=== PATIENT | male | born 1955 | race Caucasian/White ===

== ENCOUNTER 2024-05-17 18:33 | Inpatient (IN) | payer MEDICARE, OTHER, SELFPAY ==
[2024-05-17 14:31] VITALS: BP 133/113
[2024-05-17 14:36] VITALS: BMI 24.2
[2024-05-17 15:00] VITALS: BP 157/131
[2024-05-17 15:01] LABS: % Basophils 0.5 % (0-2); % Immature Granulocytes 1.1 % (0-0.5); % Lymphocytes 5.2 % (20.5-51.1); % Monocytes 10.5 % (1.7-9.3); % Neutrophils 82.7 % (42.2-75.2); Absolute Basophils 0.1 10^3/uL (0-0.2); Absolute Immature Granulocytes 0.1 10^3/uL (0-0.05); Absolute Lymphocytes 0.7 10^3/uL (1.2-3.4); Absolute Monocytes 1.3 10^3/uL (0.1-0.6); Absolute Neutrophils 10.3 10^3/uL (1.4-6.5); Hematocrit 41.2 % (39.0-52.0); Hemoglobin 14.3 g/dL (13.0-18.0); Mean Corp Hgb Conc. 34.7 g/dL (33.0-37.0); Mean Corpuscular Hgb 34.6 pg (27.0-31.0); Mean Corpuscular Volume 99.8 fL (80.0-94.0); Mean Platelet Volume 9.3 fL (7.4-10.4); Nucleated Red Blood Cells % 0 % (-); Platelet Count 193 10^3/uL (130-400); Red Blood Cell Count 4.13 10^6/uL (4.70-6.10); Red Cell Dist. Width 11.4 % (11.5-14.5); White Blood Cell Count 12.4 10^3/uL (4.8-10.8)
--- NOTE | 2024-05-17 15:05 | ED.GENMED ---
History of Present Illness
General
Chief Complaint: Weakness
Source: patient, spouse and family (Son)
Time Seen by Provider: 05/17/24 14:52
History of Present Illness
History of Present Illness:
68-year-old male history of frequent falls secondary to his Parkinson's. Fell last night. Syncope. Unsure if he hit his head. Was able to get up with his assistance. However multiple falls this morning with weakness. Inability to use the
right leg. Complaining of severe low back pain
Past History
Past History
ED Past Medical History: Other (Cerebellar ataxia) and Other (Irritable bowel syndrome)
ED Past Surgical History: Orthopedic (Left elbow, left ankle)
Social History
Personal:
Living: with family
Phy Exam
Physical Exam
Physical Exam:
TRAUMA EXAM:
VITAL SIGNS: Vital signs reviewed, cooperative
DISTRESS: No active disease
EYES: Pupils reactive, no orbital trauma
NOSE: No deformity or epistaxis
FACE AND SCALP: Abrasion to the right forehead no blood
NECK: Collar in place
BACK: Severe low back pain with rotation. However no point tenderness abrasion or ecchymosis
RESPIRATORY: No distress, breath sounds normal, no tender chest wall
CARDIAC: No murmur, pulses equal and strong
ABDOMEN: Soft nontender bowel sounds normal
SKIN: Superficial abrasion of the lower abdominal wall
EXTREMITIES: No pain with hip rotation. Pelvis stable. All extremities unremarkable. However significant low back pain with attempted straight leg raising of the right leg.
NEUROLOGICAL: Alert, oriented, no motor deficits. Weakness of the right leg but appears more secondary to low back pain when he tries to straight leg raise. Plantar dorsiflexion of the foot are intact. Resting tremor left arm. Masked facies.
All consistent with Parkinson's
PSYCH: Mood affect normal
Course
Orders/Labs/Results
Orders:
Orders
05/17/24 14:34
EKG [Electrocardiogram (*1)] Urgent
Reason for Study: Fatigue / Weakness
EKG- Treatment ONCE
05/17/24 14:43
COVID-19 Antigen Urgent
Source: Nasal Swab
Complete Blood Count/With Diff Urgent
Comprehensive Metabolic Panel Urgent
Influenza A+B Rapid Molecular Urgent
MANJIT Source: Nasal Swab
Specimen Description:
05/17/24 Dinner
Regular
05/17/24 15:03
CT Cervical Spine W/o Iv Contr Urgent
Comment:
Reason For Exam: trauma
CT Head W/o Iv Contrast Urgent
Comment:
Reason For Exam: trauma
Cardiac Monitoring- Treatment ONCE
05/17/24 15:05
0.9% Sodium Chloride 500 ml [Nss] 500 ml IV BOLUS
05/17/24 15:07
CT Abd/pel W Iv Cont (trauma) Urgent
Comment:
Reason For Exam: Severe low back pain. Status post trauma
Cardiac Monitoring- Treatment ONCE
05/17/24 17:07
Urinalysis Reflex To Culture Urgent
Date Specimen was Collected: 05/17/24
Time Specimen was Collected: 17:06
Urine Microscopic Reflex Cult Urgent
Urine Culture Urgent
MANJIT Source: U
Specimen Description:
Date Specimen was Collected: 05/17/24
Time Specimen was Collected: 17:06
05/17/24 17:21
CXR Port [CR Chest Portable - 1 View] Urgent
Comment:
Reason For Exam: trauma
Reason Study Needs to be Portable: Unable to Transport
05/17/24 17:47
CefTRIAXone [Rocephin] 1,000 mg IV NOW STA
05/17/24 18:00
Ketorolac [Toradol] 15 mg IV NOW STA
05/17/24 18:03
Admit/Transfer Patient As Directed
Co-Sign Provider:
Level of Care: Inpatient admission
Assign to:: Telemetry
Physician / Group: Dr Grimes
Diagnosis: UTI
Reason for Telemetry: Arrhythmia
Date to Stop Telemetry: 05/20/24
Time to Stop Telemetry: 11:00
Reason for Hospitalization: pte p/w fall and sepsis due to uti.
Expected length of stay greater than two midnights?: Yes
ELOS- Estimated Length of Stay in days: 2
I certify the patient meets the requirements for IP care: Yes
PRN Pain Medication Management As Directed
May give lesser potent ordered pain med per pt: Yes
preference::
Protocol:: Medication orders for pain may be administered in a
manner that supports deferring to patient preference
when the pt is:
- Requesting an ordered lesser potent pain medication.
Least to most potent pain medications are defined
as: acetaminophen < NSAID < tramadol < opioids
(morphine, oxycodone, hydromorphone).
- Requesting a lesser dose of the same medication IF
ORDERED.
- Requesting a less intrusive route of administration
if both routes are prescribed by the provider (PO <
IV).
05/17/24 18:04
Code Status As Directed
Resuscitation Status: Full Code
05/17/24 18:06
Pt Eval And Treat Routine
Activity Level: Out of Bed-Early Mobility
05/17/24 18:07
Ot Eval And Treat Routine
05/17/24 18:22
Code Status As Directed
Resuscitation Status: Do not resuscitate
Reached after discussion with pt or family/Healthcare POA: Yes
DNR Bracelet Application ONCE
05/17/24 18:23
Orthostatic Vital Signs As Directed
Orthostatic VS Frequency: Daily
05/17/24 18:25
Carbidopa/Levodopa [Sinemet 25-100] 1 tablet PO TID
Primidone [Mysoline] 50 mg PO DAILY
Tamsulosin [Flomax] 0.4 mg PO DAILY
05/17/24 18:26
HYDROmorphone [Dilaudid] 0.25 mg IV Q4HPRN PRN
05/17/24 18:45
Blood Culture Q30M
MANJIT Source: Blood/Venous
Specimen Description:
05/17/24 19:00
Lactated Ringers [Lr] 1,000 ml IV 85 mls/hr
05/17/24 19:38
Acetaminophen [Tylenol] 650 mg PO Q4HPRN PRN
Bisacodyl [Dulcolax] 10 mg RECTAL T26IYLE PRN
Docusate W/Senna [Senokot-S] 1 tablet PO BIDPRN PRN
Polyethylene Glycol Powder [Miralax] 17 grams PO DAILYPRN PRN
05/17/24 19:38
Activity As Directed
Activity Level: Out of Bed-Early Mobility
Vital Signs As Directed
Frequency: Per unit guidelines
DX Deep Vein Thrombosis Video Routine
05/17/24 20:00
Duloxetine Delayed Release [Cymbalta Delayed Release] 30 mg PO BID
Levetiracetam [Keppra] 500 mg PO BID
Pregabalin [Lyrica] 75 mg PO BID
05/17/24 20:30
Lactic Acid Stat
Blood Culture Q30M
MANJIT Source: Blood/Venous
Specimen Description:
05/18/24 00:00
Ketorolac [Toradol] 10 mg IV Q6HPRN PRN
05/18/24 06:00
Complete Blood Count/With Diff IN AM
Comprehensive Metabolic Panel IN AM
05/18/24 18:00
CefTRIAXone [Rocephin] 1,000 mg IV Q24H
Enoxaparin Sodium [Lovenox] 40 mg SC QPM
05/20/24 11:00
DC Protocol for Telemetry ONCE
Abnormal Lab Results
05/17/24 05/17/24
14:43 17:07
WBC 12.4 H 10^3/uL
(4.8-10.8)
RBC 4.13 L 10^6/uL
(4.70-6.10)
MCV 99.8 H fL
(80.0-94.0)
MCH 34.6 H pg
(27.0-31.0)
RDW 11.4 L %
(11.5-14.5)
Abs Immat Gran (auto) 0.1 H 10^3/uL
(0-0.05)
Absolute Neuts (auto) 10.3 H 10^3/uL
(1.4-6.5)
Absolute Lymphs (auto) 0.7 L 10^3/uL
(1.2-3.4)
Absolute Monos (auto) 1.3 H 10^3/uL
(0.1-0.6)
Immature Gran % 1.1 H %
(0-0.5)
Neutrophils % 82.7 H %
(42.2-75.2)
Lymphocytes % 5.2 L %
(20.5-51.1)
Monocytes % 10.5 H %
(1.7-9.3)
Sodium 131 L mmol/L
(135-145)
Chloride 92 L mmol/L
(98-107)
Carbon Dioxide 20 L mmol/L
(22-30)
Glucose 118 H mg/dl
(70-99)
Total Bilirubin 2.3 H mg/dl
(0.2-1.3)
Alkaline Phosphatase 135 H U/L
(38-126)
Urine Ketones 1+ A
(Negative)
Ur Occult Blood Reflex 3+ A
(Negative)
Leukocyte Esterase Rfl 2+ A
(Negative)
Urine RBC 3-6 A /HPF
(0-2)
Urine WBC (Reflex) 50-60 A /HPF
(0-5)
Urine Bacteria (Reflex) Few A
(Negative)
Urine Albumin (Reflex) 1+ A
(Neg - Trace)
05/17/24 14:43
05/17/24 14:43
Vital Signs
Initial and Last Documented VS:
Initial Vital Signs
Temp Pulse Resp BP Pulse Ox
98.0 F 110 20 133/113 100
05/17/24 14:31 05/17/24 14:31 05/17/24 14:31 05/17/24 14:31 05/17/24 14:31
Last Documented Vital Signs
Temp Pulse Resp BP Pulse Ox
97.9 F 94 20 142/76 99
05/17/24 19:43 05/17/24 19:43 05/17/24 19:43 05/17/24 19:43 05/17/24 19:43
MDM/Problems Addressed
Differential Diagnosis Includes:
Multiple issues with this patient. Neurologically I have a low suspicion for stroke. He does have weakness in the right leg but it appears more secondary to pain. We will get a CT of the head. Also CT of the head will be obtained because of
trauma CT cervical spine. Mostly his complaint is severe low back pain. We will CT his abdomen and pelvis he does have an abrasion of the abdomen. This should include the lumbar spine. In addition the states he has urinary symptoms. UA
will be obtained. Patient clearly needs admission. Workup in progress
*Critical Care Note
Total Time (30-74mins, 75-104mins- exclusive of procedures): Not Applicable
Data Reviewed
Review of Other/Old Records Reveals: Labs and Records
ED Attending Note
-
Portions of this chart may have been created with voice recognition software.� Occasional wrong word or��sound alike� substitutions may have occurred due to the inherent limitations of voice recognition software.
Discharge Plan
Departure
Patient Disposition: Admit
Date of Disposition: 05/17/24
Time of Disposition: 17:48
Presentation/result/management discussed w/ accepting MD/DO: Hospitalist
Discharge Problem:
Fall, Lumbar compression fracture/transverse p, Right rib fracture, UTI
Interventions
Interventions:
*Risk Screen - Suicide Last Done: 05/17/24 14:29
*General Assessment Last Done: 05/17/24 14:29
*Neglect/Abuse Screening Last Done: 05/17/24 14:29
ED- Fall Risk Assessment Last Done: 05/17/24 14:30
*ED COVID-19 Vaccine History Last Done: 05/17/24 14:35
*Nursing Disposition Last Done: 05/17/24 19:25
ED- Cardiac Assessment Last Done: 05/17/24 14:39
ED- Neurological Assessment Last Done: 05/17/24 14:39
ED- Pulmonary Assessment Last Done: 05/17/24 14:39
Discharge Date and Time
Discharge Date/Time: 05/17/24 19:25
[2024-05-17 15:12] LABS: COVID-19 Antigen Negative (Negative)
[2024-05-17] MEDS: NSS 500 IV (15:13)
[2024-05-17 15:18] LABS: ALT (SGPT) 41 U/L (0-50); AST (SGOT) 51 U/L (17-59); Albumin 4.6 g/dl (3.5-5.0); Alkaline Phosphatase 135 U/L (38-126); Blood Urea Nitrogen 15 mg/dl (9-20); Calcium 9.6 mg/dl (8.4-10.2); Carbon Dioxide 20 mmol/L (22-30); Chloride 92 mmol/L (98-107); Estimated Creatinine Clearance 75 ml/min; Glucose 118 mg/dl (70-99); Potassium 4.9 mmol/L (3.5-5.1); Sodium 131 mmol/L (135-145); Total Bilirubin 2.3 mg/dl (0.2-1.3); Total Protein 7.6 g/dl (6.3-8.2); eGFR > 60.00
[2024-05-17 16:50] VITALS: BP 144/102
[2024-05-17 17:00] VITALS: BP 168/89
[2024-05-17 17:42] LABS: Urine Albumin 1+ (Neg - Trace); Urine Bilirubin Negative (Negative); Urine Character Very Cloudy (Clear); Urine Color Yellow; Urine Glucose Negative (Negative); Urine Ketone 1+ (Negative); Urine Leukocyte 2+ (Negative); Urine Nitrite Negative (Negative); Urine Occult Blood 3+ (Negative); Urine Specific Gravity 1.015 (<1.030); Urine Urobilinogen Negative (Neg - 1+)
[2024-05-17 17:51] LABS: Urine Bacteria Few (Negative); Urine Squamous Cell 0-2 /LPF (Few)
[2024-05-17 17:52] LABS: Urine White Cell 50-60 /HPF (0-5)
[2024-05-17] MEDS: ROCEPHIN 1000 MG IV (17:53)
--- NOTE | 2024-05-17 17:55 | HPS.HSE ---
Family Physician
-
Family Physician: Jb Joel
Chief Complaint
-
Fall
History of Present Illness
Patient 68 years old male with history of Parkinson's disease, peripheral neuropathy, BPH, seizure disorder, dyslipidemia, orthostatic hypotension, came into the hospital after a fall. Patient fell last evening when he was walking to the bath and
tripped and fell. He did hit his head. He denies loss of consciousness. He denies tonic-clonic activity or tongue biting or bowel bladder incontinence. He has multiple falls over the last few weeks. He also endorses having dysuria and urgency
and frequency over the last several days has been progressively getting worse. He also complains of back pain after the fall. He also has generalized weakness and worsening tremors but he has not taking any of his medications today. He denies
fevers or chills. Denies chest pain or shortness of breath. He did have some mild URI symptoms and rhinorrhea but no worsening cough or shortness of breath. He tells me she sees a neurologist at [facility] and last time he saw him was about 3
months ago and tells me the neurologist has noticed progression of his underlying Parkinson's and he has an upcoming appointment for June. In the ER he was found to have leukocytosis and he was given broad-spectrum antibiotics. He was
referred to hospitalist for further evaluation
Medical History
Past Medical History
Past Medical History: Reports Other (Parkinson's disease, peripheral neuropathy, BPH, seizure disorder, irritable bowel syndrome, dyslipidemia, hereditary cerebellar ataxia, orthostatic hypotension.)
Past Surgical History: Reports Other (Left elbow and left ankle surgery)
Social History
Tobacco: Non-smoker
Alcohol: None
Drug: None
Family History
Family History: Not pertinent
Allergies / Home Medications
Allergies reflects when Allergies were last updated in [facility].
Home Medications with original date entered in [facility]
Allergy/Medication List:
Allergies
Allergy/AdvReac Type Severity Reaction Status Date / Time
bacitracin Allergy Pharmacy Verified 05/17/24 14:34
to Review
gramicidin D Allergy Pharmacy Verified 05/17/24 14:34
to Review
neomycin Allergy Pharmacy Verified 05/17/24 14:34
to Review
polymyxin B Allergy Pharmacy Verified 05/17/24 14:34
to Review
Home Medications
fenofibric acid (choline) 135 mg capsule,delayed release (Trilipix) 135 mg PO DAILY 12/02/09
multivitamin with folic acid 400 mcg tablet (Tab-A-Kody) 1 tab PO DAILY 12/02/09
nitroglycerin 0.4 mg sublingual tablet 0.4 mg sublingual [id number] PRN CHEST PAIN 12/02/09
aspirin,buffered (calcium carbonate-magnesium) 325 mg tablet 325 mg PO DAILY 12/05/09
Review of Systems
-
A 12 point ROS was completed and negative except as noted: Yes
Physical Exam
Vital Signs
Vital Signs
Temp Pulse Resp BP Pulse Ox
98.0 F 104 14 157/131 93
05/17/24 14:31 05/17/24 15:30 05/17/24 15:30 05/17/24 15:00 05/17/24 15:30
Physical exam:
General: Acutely ill
HEENT: Normocephalic, Atraumatic and dry Mucous Membranes
Respiratory: Clear to Auscultation; Negative Wheezes, Rales or Rhonchi
Cardiac: Regular Rhythm and S1/S2
GI: Soft, Nontender and Nondistended
Musculoskeletal: Pain in the lumbar area. Decreased range of motion in the back. No Clubbing, No Cyanosis and No Edema
Neuro: Awake, Alert and Oriented, no gross neurological deficit but generalized weakness present especially both lower extremities slightly worse on the right associated with pain; he also has increased tone/rigidity and bradykinesia, tremors
present, and also masked facies.
Psych: Calm
Physical Exam
General: Other
Laboratory Results
-
05/17/24 14:43
05/17/24 14:43
Laboratory Results
Total Bilirubin 2.3 mg/dl (0.2-1.3) H 05/17/24 14:43
AST 51 U/L (17-59) 05/17/24 14:43
ALT 41 U/L (0-50) 05/17/24 14:43
Alkaline Phosphatase 135 U/L (38-126) H 05/17/24 14:43
Data Reviewed
-
CT Scan: Image Personally Visualized and interpreted
Lab Data: Labs Reviewed by me
Impression/Plan
-
IMPRESSION:
Patient 68 years old male history of Parkinson's came into the hospital with fall and found to have urinary tract infection. Patient increased risk of morbidity and mortality due to acute presentation and comorbidities therefore he will need to be
treated in the hospital and monitor accordingly.
PLAN:
Mechanical fall:
Multifactorial related to UTI, Parkinson's, peripheral neuropathy, and other
PT OT eval
CT of the head no acute intracranial abnormality but chronic changes noted
CT of the neck with several abnormalities but doubt needs for any surgical evaluation but can reevaluate
Gentle hydration and antibiotics since infection and dehydration contributing
Back to his Parkinson medications
trade manager for discharge disposition
Sepsis due to UTI:
Evidence of leukocytosis, tachycardia, tachypnea, and source likely UTI
Abnormal UA consistent with UTI
White blood cell count 12.[address] scan of the abdomen with evidence of severe cystitis
Started on IV Rocephin and continue same antibiotics and follow-up cultures
Follow-up urine culture
Obtain blood cultures and lactic acid
Chest x-ray pending to exclude pulmonary source but less likely
Compression fractures:
Pain control
PT eval
If fails conservative treatment can consider vertebroplasty
Monitor and reevaluate
Hyponatremia:
Reevaluate after hydration
Elevated LFTs:
Infection could be contributing but might look into other possibilities if persistently elevated
Trend LFTs
Parkinson's:
Restart Sinemet 100/25 mg p.o. 3 times daily
Continue primidone 50 mg p.o. day
PT eval
Sees outpatient neurology at [facility] (Dr. Guzman)-can see them outpatient
Peripheral neuropathy:
Continue Lyrica 75 mg--> he is taking it 4 times a day but I ordered only twice a day since this can contribute lethargy and falls
Seizure disorder:
Continue Keppra 500 mg twice a day
BPH:
Continue Flomax 0.4 mg p.o. daily but careful with orthostatic
Orthostatic hypotension:
Continue midodrine 5 mg p.o. 3 times daily
DVT prophylaxis:
Lovenox SQ
CODE STATUS:
DNR
Time spent 75 minutes
[2024-05-17] MEDS: TORADOL 15 MG IV (18:12)
[2024-05-17 19:43] VITALS: BP 142/76; BMI 24.0
--- NOTE | 2024-05-17 20:00 | PTCARENOTE ---
Patient received from ED, AAOx3, tremors noted. NSR on monitor, no edema. Lungs clear, on room air . Abdomen soft, non tender. Right forehead with abrasion, bilateral knees with bruising noted. Legs with scratches. sacrum intact. #20 g in
right wrist flushed and patent
[2024-05-17] MEDS: CYMBALTA DELAYED RELEASE 30 MG PO (20:50)
[2024-05-17] MEDS: LYRICA 75 MG PO (20:50)
[2024-05-17] MEDS: MYSOLINE 50 MG PO (20:50)
[2024-05-17] MEDS: FLOMAX 0.4 MG PO (20:50)
[2024-05-17 20:52] LABS: Lactic Acid 0.9 mmol/L (0.7-2.0)
[2024-05-17] MEDS: LR 1000 IV (21:00)
[2024-05-17] MEDS: KEPPRA 500 MG PO (21:22)
[2024-05-17] MEDS: SINEMET 25-100 1 TABLET PO (21:22)
[2024-05-17] MEDS: SINEMET 25-100 PO (21:28)
[2024-05-17 23:17] VITALS: BP 117/60
[2024-05-18] VITALS (8 sets, daily range): BP systolic 110–132; BP diastolic 66–81; PULSE 94–99; O2SAT 96–97
[2024-05-18] MEDS: TORADOL 10 MG IV ×3 (00:06→17:16)
[2024-05-18 09:02] LABS: ALT (SGPT) 22 U/L (0-50); AST (SGOT) 35 U/L (17-59); Albumin 3.5 g/dl (3.5-5.0); Alkaline Phosphatase 109 U/L (38-126); Blood Urea Nitrogen 19 mg/dl (9-20); Calcium 8.8 mg/dl (8.4-10.2); Carbon Dioxide 27 mmol/L (22-30); Chloride 96 mmol/L (98-107); Estimated Creatinine Clearance 94 ml/min; Glucose 98 mg/dl (70-99); Potassium 3.9 mmol/L (3.5-5.1); Sodium 132 mmol/L (135-145); Total Bilirubin 1.2 mg/dl (0.2-1.3); Total Protein 6.3 g/dl (6.3-8.2); eGFR > 60.00
[2024-05-18 09:03] LABS: % Basophils 0.6 % (0-2); % Eosinophils 1.9 % (0-6); % Immature Granulocytes 0.6 % (0-0.5); % Monocytes 11.2 % (1.7-9.3); % Neutrophils 70.7 % (42.2-75.2); Absolute Eosinophils 0.1 10^3/uL (0-0.7); Absolute Monocytes 0.7 10^3/uL (0.1-0.6); Absolute Neutrophils 4.5 10^3/uL (1.4-6.5); Hematocrit 33.8 % (39.0-52.0); Mean Corp Hgb Conc. 35.5 g/dL (33.0-37.0); Mean Corpuscular Hgb 35.2 pg (27.0-31.0); Mean Corpuscular Volume 99.1 fL (80.0-94.0); Mean Platelet Volume 9.4 fL (7.4-10.4); Nucleated Red Blood Cells % 0 % (-); Platelet Count 148 10^3/uL (130-400); Red Blood Cell Count 3.41 10^6/uL (4.70-6.10); Red Cell Dist. Width 11.3 % (11.5-14.5); White Blood Cell Count 6.4 10^3/uL (4.8-10.8)
[2024-05-18] MEDS: LR 1000 IV (09:08)
[2024-05-18] MEDS: SINEMET 25-100 1 TABLET PO ×3 (09:08→22:26)
[2024-05-18] MEDS: CYMBALTA DELAYED RELEASE 30 MG PO ×2 (09:08→20:33)
[2024-05-18] MEDS: KEPPRA 500 MG PO ×2 (09:09→20:32)
[2024-05-18] MEDS: FLOMAX 0.4 MG PO (09:09)
[2024-05-18] MEDS: LYRICA 75 MG PO ×2 (09:53→20:32)
[2024-05-18] MEDS: MYSOLINE 50 MG PO (09:53)
--- NOTE | 2024-05-18 14:07 | W.PN.HOSP.TC ---
Addendum entered and electronically signed by Taiwo Herrera MD 05/19/24 11:58:
#Hyponatremia
check Uosm and Princess
Follow Cr off IVF
Original Note:
Today's Communication/Plan
-
see PN
Assessment / Plan
Assessment / Plan
68yo M with Parkinsons, Hx of falls, seizure d/o, orthostatic hypotension, neuropathy, BPH, cataract, anxiety came after multiple falls at home with severe back pain, found multiple acute vertebral Fx and signs of UTI
A/P:
#b/l LE weakness, can be 2/2 UTI
concern for bladder outlet obstruction - cont tamsulosin, serial bladder scan, outpatient urology for cystoscopy
cont Rocephin pending Ucx
No hydronephrosis on CT
#Fall without LOC (as reported by patient)
#ACUTE SUPERIOR and INFERIOR FRACTURES of L4 with mild loss of vertebral body height
#Acute nondisplaced fracture of the right posterior 12th rib.
#Acute nondisplaced fractures of the right L1 and L2 transverse processes.
pain mgmt
with b/l LE weakness - MRI spine
#AAA
3.1cm - US abdominal aorta in 1 year with PCP
#Parkinsons
#Cataract
#Seizure d/o
cont home meds
no reported seizures
DVT ppx lovenox
DNR/DNI
I have spent at least 59min reviewing chart, test results, communication with consultants and direct patient care
Anticipated Discharge: 24 - 48 hours
Subjective/Interval History
-
Date of Service: May 18, 2024
Objective Data
-
Labs:
Laboratory Results
05/18/24
08:19
WBC 6.4
Hgb 12.0 L
Hct 33.8 L
Plt Count 148 D
Sodium 132 L
Potassium 3.9
Chloride 96 L
Carbon Dioxide 27
BUN 19
Creatinine 0.8
Glucose 98
Calcium 8.8
Total Bilirubin 1.2 D
AST 35
ALT 22
Alkaline Phosphatase 109
Vital Signs:
Vital Signs
Temp Pulse Resp BP Pulse Ox
97.4 F 96 20 127/71 93
05/18/24 11:12 05/18/24 11:12 05/18/24 11:12 05/18/24 11:12 05/18/24 11:12
I&O
05/17/24 05/18/24 05/19/24
06:59 06:59 06:59
Intake Total 1020 / 1020
Balance 1020 / 1020
Physical Exam
-
General: Well Developed
HEENT: Normocephalic
Respiratory: Clear to Auscultation
Cardiac: Regular Rhythm
GI: Soft, Nontender and Nondistended
Musculoskeletal: No Clubbing, No Cyanosis and No Edema
Skin: Warm
Neuro: Awake, Alert, Oriented, AO x 3 and Tremors
Psych: Calm
[2024-05-18] MEDS: ROCEPHIN 1000 MG IV (17:08)
[2024-05-18] MEDS: STERILE WATER FOR INJECTION 10 ML IV (17:08)
[2024-05-18] MEDS: FLUSH (NSS) 10 FLUSH IV ×2 (17:09→17:23)
[2024-05-18] MEDS: LOVENOX 40 MG SC (17:09)
[2024-05-18] MEDS: ProAmatine 2.5 MG PO (17:11)
--- NOTE | 2024-05-18 17:11 | W.PN.URO.CBU ---
Today's Communication / Plan
-
TEACH FAMILY HASKINS CARE OR NEEDS SOC SVC EVAL FOR HOME CARE VS NHP
Assessment / Plan
-
bladder filled with pyuria reviewEd cat scan haskins draining gross pyuria over liter first hour will need to go home with hasknis or nhp will need outpATIENT EVAL FOR RETENTION
Diagnosis
-
Date of Service: May 18, 2024
-
Patient Diagnosis:urinary infection gross pyuria due to bph and neurogenic bladder of parkinsons
Post Op Day:
Subjective
-
feels better from haskins
Objective
-
Vital Signs
Temp Pulse Resp BP Pulse Ox
98.5 F 73 18 114/69 95
05/18/24 15:49 05/18/24 15:49 05/18/24 15:49 05/18/24 15:49 05/18/24 15:49
Intake and Output
05/17/24 05/18/24 05/19/24
06:59 06:59 06:59
Intake Total 1020 / 1020
Balance 1020 / 1020
Intake:
IV fluids (Total) 1020 / 1020
Other:
How many times incontinent 2
Laboratory Results
05/18/24 08:19
05/18/24 08:19
Review of Systems
-
: Dysuria, Frequency, Difficulty Voiding and Urgency
Physical Exam
-
General - well developed, well nourished, no acute distress
Chest - clear bilaterally
Abdomen - soft, non-tender, positive bowel sounds, no CVAT, no incisional pain or distention
Genitalia - normal
Rectal - normal
Skin - warm & dry with no rash
Neuro - AOx3, no motor deficits
Extremities - no clubbing, no cyanosis, no edema
Incision - clean, dry
Dressing - clean, dry, intact
Care Review
Data Reviewed
Discussed with: Hospitalist and Nursing
CT Scan: Image Pers Reviewed
--- NOTE | 2024-05-18 17:24 | CM ---
patient safety manager reviewed patient's chart and met with patient and patient lives with his spouse in a split level home with no steps in from the garages, per patient he is independent with adl's and has canes and walkers on every floor to assist with
ambulation if needed.
PCP: Dr Edin Joel
Pharmacy: [facility] in [place]
Plan; Home when stable.
--- NOTE | 2024-05-18 18:50 | PTCARENOTE ---
Pt unable to void, bladder scanned for > 500ml. Dr Jones notified. 14 F placed and 750ml urine out, initially star urine, eventually draining milky pus draining. Dr Alcantara at bedside to assess pt.
[2024-05-18] MEDS: ProAmatine PO (21:24)
[2024-05-18] MEDS: XALATAN OPHTHALMIC SOLUTION 1 DROP BOTH EYES (22:26)
[2024-05-19 03:16] VITALS: BP 139/72
[2024-05-19] MEDS: DILAUDID 0.25 MG IV ×3 (03:55→16:11)
--- NOTE | 2024-05-19 05:19 | PTCARENOTE ---
Late entry: Aprox [address] Alcantara. Pt's haskins draining bloody urine. Per Dr Oreilly, okay to leave regular size catheter in and no need for CBI as long as the haskins is draining. Haskins has been draining all night with the same bloody
urine. No clots noted. Pt with no pain or discomfort.
[2024-05-19 07:00] VITALS: BP 143/78
[2024-05-19 07:26] LABS: % Basophils 0.6 % (0-2); % Eosinophils 2.8 % (0-6); % Immature Granulocytes 0.6 % (0-0.5); % Monocytes 13.6 % (1.7-9.3); % Neutrophils 65.4 % (42.2-75.2); Absolute Eosinophils 0.2 10^3/uL (0-0.7); Absolute Lymphocytes 0.9 10^3/uL (1.2-3.4); Absolute Monocytes 0.7 10^3/uL (0.1-0.6); Absolute Neutrophils 3.5 10^3/uL (1.4-6.5); Hematocrit 33.1 % (39.0-52.0); Hemoglobin 11.8 g/dL (13.0-18.0); Mean Corp Hgb Conc. 35.6 g/dL (33.0-37.0); Mean Corpuscular Hgb 35.2 pg (27.0-31.0); Mean Corpuscular Volume 98.8 fL (80.0-94.0); Mean Platelet Volume 9.7 fL (7.4-10.4); Nucleated Red Blood Cells % 0 % (-); Platelet Count 157 10^3/uL (130-400); Red Blood Cell Count 3.35 10^6/uL (4.70-6.10); Red Cell Dist. Width 11.2 % (11.5-14.5); White Blood Cell Count 5.3 10^3/uL (4.8-10.8)
[2024-05-19] MEDS: CYMBALTA DELAYED RELEASE 30 MG PO ×2 (07:43→20:17)
[2024-05-19] MEDS: ProAmatine 2.5 MG PO ×3 (07:43→22:38)
[2024-05-19] MEDS: SINEMET 25-100 1 TABLET PO ×3 (07:43→22:38)
[2024-05-19] MEDS: MYSOLINE 50 MG PO (07:44)
[2024-05-19] MEDS: KEPPRA 500 MG PO ×2 (07:44→20:17)
[2024-05-19] MEDS: LYRICA 75 MG PO ×2 (07:44→20:18)
[2024-05-19] MEDS: FLOMAX 0.4 MG PO (07:44)
[2024-05-19 07:51] LABS: ALT (SGPT) 13 U/L (0-50); AST (SGOT) 40 U/L (17-59); Albumin 3.2 g/dl (3.5-5.0); Alkaline Phosphatase 134 U/L (38-126); Blood Urea Nitrogen 16 mg/dl (9-20); Calcium 8.5 mg/dl (8.4-10.2); Carbon Dioxide 28 mmol/L (22-30); Chloride 95 mmol/L (98-107); Estimated Creatinine Clearance 108 ml/min; Glucose 90 mg/dl (70-99); Sodium 129 mmol/L (135-145); Total Bilirubin 0.8 mg/dl (0.2-1.3); Total Protein 5.9 g/dl (6.3-8.2); eGFR > 60.00
--- NOTE | 2024-05-19 11:52 | W.PN.HOSP.TC ---
Addendum entered and electronically signed by Taiwo Herrera MD 05/19/24 14:47:
#Moderate acute compression fracture of the L4 vertebral body with 30% loss of height and minor retropulsion of the posterior cortex
#Suggestion of mild extradural hematoma/complex fluid in the anterior lumbar spinal canal at L4-L5 measuring 3 mm in thickness
Lovenox already on hold
NeuroSx eval
Original Note:
Today's Communication/Plan
-
pending Ucx sensitivity
hold Lovenox
place SCDs
if benign MRI - PT/OT
Assessment / Plan
Assessment / Plan
68yo M with Parkinsons, Hx of falls, seizure d/o, orthostatic hypotension, neuropathy, BPH, cataract, anxiety came after multiple falls at home with severe back pain, found multiple acute vertebral Fx and signs of UTI, found acute urinary retention
with >700ml PVR, haskins placed and urology advised to d/c on Haskins for outpatient follow up.
A/P:
#b/l LE weakness, can be 2/2 UTI
#Acute urinary retention
#Hematuria
hold Lovenox, possible hematuria 2/2 trauma during haskins placement
cont Haskins - plan to d/c on it
concern for bladder outlet obstruction - cont tamsulosin, serial bladder scan, outpatient urology for cystoscopy
cont Rocephin
Ucx - S.agalactiae - sensitivity ordered
No hydronephrosis on CT
#Fall without LOC (as reported by patient)
#ACUTE SUPERIOR and INFERIOR FRACTURES of L4 with mild loss of vertebral body height
#Acute nondisplaced fracture of the right posterior 12th rib.
#Acute nondisplaced fractures of the right L1 and L2 transverse processes.
pain mgmt
with b/l LE weakness - MRI spine
#AAA
3.1cm - US abdominal aorta in 1 year with PCP
#Parkinson
#Cataract
#Seizure d/o
cont home meds
no reported seizures
DVT ppx SCDs
DNR/DNI
I have spent at least 59min reviewing chart, test results, communication with consultants and direct patient care
Anticipated Discharge: Within 24 hours
Subjective/Interval History
-
Date of Service: May 19, 2024
Objective Data
-
Labs:
Laboratory Results
05/19/24
06:32
WBC 5.3
Hgb 11.8 L
Hct 33.1 L
Plt Count 157
Sodium 129 L
Potassium 4.0
Chloride 95 L
Carbon Dioxide 28
BUN 16
Creatinine 0.7
Glucose 90
Calcium 8.5
Total Bilirubin 0.8
AST 40
ALT 13
Alkaline Phosphatase 134 H
Vital Signs:
Vital Signs
Temp Pulse Resp BP Pulse Ox
98.0 F 85 18 143/78 97
05/19/24 07:00 05/19/24 07:00 05/19/24 07:00 05/19/24 07:00 05/19/24 07:00
I&O
05/18/24 05/19/24 05/20/24
06:59 06:59 06:59
Intake Total 1020 / 1020 2280 / 2280
Output Total 1325 / 1325
Balance 1020 / 1020 955 / 955
Review of Systems
-
History Source: Patient
All other systems: Reviewed and negative
Musculoskeletal: Reports Other (back pain)
Physical Exam
-
General: No Apparent Distress
Respiratory: Clear to Auscultation
Cardiac: Regular Rhythm
GI: Soft
Genito-urinary: Bloody Urine and Haskins
Musculoskeletal: No Clubbing, No Cyanosis and No Edema
Neuro: Awake, Alert, Oriented and AO x 3
Psych: Calm
[2024-05-19 13:21] LABS: Osmolality Urine 656 mOsm/kg (300-900)
[2024-05-19 13:27] LABS: Urine Sodium 34 mmol/L (30-90)
[2024-05-19 15:00] VITALS: BP 147/80
[2024-05-19] MEDS: ROCEPHIN 1000 MG IV (16:03)
[2024-05-19] MEDS: STERILE WATER FOR INJECTION 10 ML IV (16:03)
[2024-05-19] MEDS: FLUSH (NSS) IV ×2 (16:04)
--- NOTE | 2024-05-19 16:26 | CON.NS ---
Documented by User: Sara Hartley PA-C 05/19/24 16:40
Chief Complaint
-
s/p fall
History of Present Illness
This is a 68 y/o M with history of Parkinson's Disease, peripheral neuropathy, BPH, seizure disorder, HLD and orthostatic hypotension who presented to the hospital after he sustained a fall and had back pain. He was diagnosed with a UTI and found to
have an acute L4 fracture as well as L1, L2 right TP fx. Neurosurgery was consulted for evaluation. He did state that he had difficulty walking due to pain and felt his right leg would give out. MRI was obtained which demonstrated acute L4
compression fracture with possible mild hematoma at L4/5 and stenosis from degenerative disease at L3/4 and L4/5. Neurosurgery was consulted.
Patient seen and examined. Patient states he mitchell have frequent falls due to Parkinson's. He had severe back pain after his most recent fall 2 days ago. He denies any new numbness/tingling. He has a Griffin catheter in place and can feel it. He states
his right leg feels as if it will give out. He has difficultly ambulating due to back pain. He normally ambulates with a walker.
Review of Systems
-
A 12 point ROS was completed and negative except as noted in HPI
Medical History
Past Medical History
Additional Past Medical History:
Reports Other (Parkinson's disease, peripheral neuropathy, BPH, seizure disorder, irritable bowel syndrome, dyslipidemia, hereditary cerebellar ataxia, orthostatic hypotension.)
Medication and Allergies
Home Medications
Home Medications
�Medication �Instructions �Recorded
multivitamin with folic acid 400 1 tab PO DAILY Supplement 12/02/09
mcg tablet (Tab-A-Kody)
ascorbic acid (vitamin C) 500 mg 500 mg PO DAILY Supplement 05/17/24
tablet (Vitamin C)
carbidopa 25 mg-levodopa 100 mg 1 tab PO TID Neurological Condition 05/17/24
tablet
coenzyme Q10 200 mg capsule (Co 200 mg PO DAILY Supplement 05/17/24
Q-10)
duloxetine 30 mg capsule,delayed 30 mg PO BID Neurological Condition 05/17/24
release
latanoprost 0.005 % eye drops 1 drp BOTH EYES HS Eye Condition 05/17/24
levetiracetam 500 mg tablet 500 mg PO BID Neurological 05/17/24
Condition
midodrine 5 mg tablet 5 mg PO TID Blood Pressure 05/17/24
pregabalin 75 mg capsule 75 mg PO BID Neurological Condition 05/17/24
primidone 50 mg tablet 50 mg PO QPM Neurological Condition 05/17/24
tamsulosin 0.4 mg capsule 0.4 mg PO DAILY Urinary Issue 05/17/24
Allergies
Allergies
Allergy/AdvReac Type Severity Reaction Status Date / Time
bacitracin Allergy Pharmacy Verified 05/17/24 14:34
to Review
gramicidin D Allergy Pharmacy Verified 05/17/24 14:34
to Review
neomycin Allergy Pharmacy Verified 05/17/24 14:34
to Review
polymyxin B Allergy Pharmacy Verified 05/17/24 14:34
to Review
Physical Exam
-
Exam:
VSS
Patient awake, alert and oriented to person, place and time
speech: clear/fluent
CN 2012 grossly intact
multiple bruises present
+tremor
non labored breathing
motor: 5/5 with the exception of 4/5 in RIGHT KE.
sensation intact to crude touch
urine is clear and yellow
no swelling/edema
HR: normal rate
CT lumbar spine and MRI lumbar spine imaging personally reviewed and interpreted by myself and attending.
official report as below.
THORACIC MRI:
1. No MRI evidence for an acute posttraumatic abnormality of the thoracic spine.
LUMBAR MRI:
1. Moderate acute compression fracture of the L4 vertebral body with 30% loss of height and minor retropulsion of the posterior cortex.
2. Suggestion of mild extradural hematoma/complex fluid in the anterior lumbar spinal canal at L4-L5 measuring 3 mm in thickness.
3. 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
degree of L4 retropulsion and the small amount of extradural blood products in the anterior lumbar spinal canal.
CT C/A/P
1. ACUTE SUPERIOR and INFERIOR FRACTURES of L4 with mild loss of vertebral body height.
2. Acute nondisplaced fracture of the right posterior 12th rib.
3. Acute nondisplaced fractures of the right L1 and L2 transverse processes.
4. Multiple chronic healed bilateral rib fractures.
5. No CT evidence for acute pelvic or proximal femoral fracture.
6. Severe diffuse hepatic steatosis.
7. Mild chronic bilateral renal disease.
8. Fusiform infrarenal abdominal aortic aneurysm (3.1 cm AP dimension).
9. Severe calcific atherosclerotic plaque in the abdominal aorta, iliac, and femoral arteries.
10. SEVERE DIFFUSE IRREGULAR URINARY BLADDER WALL THICKENING with mild perivesical inflammation and urinary bladder distention. Diagnostic possibilities are (1) severe cystitis, (2) severe chronic urinary bladder outlet obstruction, or (3)
urothelial carcinoma.
Assessment / Plan
-
This is a 68 y/o M who presents s/p fall with acute L4 fracture with degenerative stenosis at L3/4, L4/5
--Imaging personally interpreted by myself and attending. No acute neurosurgical intervention indicated
--recommend LSO bracing when upright and ambulating and pain control
--PT/OT
--okay for DVT ppx tomorrow
--patient should follow up in our office in 10 weeks.
-- Will sign off at this time. If patient has worsening motor exam, please contact neurosurgery.
-- Patient discussed with Dr. Ferguson.
Patient can go home per my specialty: Tomorrow

Documented by User: Yanni Ferguson MD 05/20/24 19:00
Assessment / Plan
-
This is a 68 y/o M who presents s/p fall with acute L4 fracture with degenerative stenosis at L3/4, L4/5
--Imaging personally interpreted by myself and attending. No acute neurosurgical intervention indicated
--recommend LSO bracing when upright and ambulating and pain control
--PT/OT
--okay for DVT ppx tomorrow
--patient should follow up in our office in 10 weeks.
-- Will sign off at this time. If patient has worsening motor exam, please contact neurosurgery.
-- Patient discussed with Dr. Ferguson.
ATTENDING ATTESTATION:
Imaging reviewed, and examination findings discussed with GISEL Hartley. No need for neurosurgical intervention at present time. Continue with LSO brace, physical therapy, appropriate pain control.
--- NOTE | 2024-05-19 17:41 | PTCARENOTE ---
Patient ordered LSO brace. Message left for [employer] ([phone]) and face sheet and copy of order faxed to them at [phone].
--- NOTE | 2024-05-19 19:32 | PTCARENOTE ---
request for LSO back brace faxed over to supplier. patient is on the bedrest till the brace can be applied. neurosurgery consult noted and tiger texted to [employer]
[2024-05-19 19:34] VITALS: BP 111/69
[2024-05-19] MEDS: ROXICODONE 5 MG PO (20:18)
[2024-05-19 21:48] LABS: Blood Urea Nitrogen 16 mg/dl (9-20); Calcium 8.5 mg/dl (8.4-10.2); Carbon Dioxide 29 mmol/L (22-30); Chloride 93 mmol/L (98-107); Estimated Creatinine Clearance 108 ml/min; Glucose 130 mg/dl (70-99); Potassium 3.5 mmol/L (3.5-5.1); Sodium 127 mmol/L (135-145); eGFR > 60.00
[2024-05-19] MEDS: XALATAN OPHTHALMIC SOLUTION 1 DROP BOTH EYES (22:38)
[2024-05-19 22:45] VITALS: BP 128/69
[2024-05-20] VITALS (8 sets, daily range): BP systolic 95–155; BP diastolic 60–86; PULSE 86–91; O2SAT 97
[2024-05-20 07:50] LABS: % Basophils 0.5 % (0-2); % Immature Granulocytes 0.6 % (0-0.5); % Lymphocytes 17.9 % (20.5-51.1); % Monocytes 10.8 % (1.7-9.3); % Neutrophils 68.2 % (42.2-75.2); Absolute Eosinophils 0.1 10^3/uL (0-0.7); Absolute Lymphocytes 1.1 10^3/uL (1.2-3.4); Absolute Monocytes 0.7 10^3/uL (0.1-0.6); Absolute Neutrophils 4.3 10^3/uL (1.4-6.5); Hematocrit 36.6 % (39.0-52.0); Hemoglobin 12.7 g/dL (13.0-18.0); Mean Corp Hgb Conc. 34.7 g/dL (33.0-37.0); Mean Corpuscular Hgb 34.7 pg (27.0-31.0); Mean Platelet Volume 9.3 fL (7.4-10.4); Nucleated Red Blood Cells % 0 % (-); Platelet Count 167 10^3/uL (130-400); Red Blood Cell Count 3.66 10^6/uL (4.70-6.10); Red Cell Dist. Width 11.3 % (11.5-14.5); White Blood Cell Count 6.4 10^3/uL (4.8-10.8)
[2024-05-20 08:24] LABS: Blood Urea Nitrogen 11 mg/dl (9-20); Calcium 8.7 mg/dl (8.4-10.2); Carbon Dioxide 32 mmol/L (22-30); Chloride 93 mmol/L (98-107); Estimated Creatinine Clearance > 125 ml/min; Glucose 104 mg/dl (70-99); Potassium 3.9 mmol/L (3.5-5.1); Sodium 132 mmol/L (135-145); eGFR > 60.00
--- NOTE | 2024-05-20 08:25 | W.PN.HOSP.TC ---
Today's Communication/Plan
-
LSO brace before attempt to ambulate
PT/OT then and rehab
Assessment / Plan
Assessment / Plan
68yo M with Parkinsons, Hx of falls, seizure d/o, orthostatic hypotension, neuropathy, BPH, cataract, anxiety came after multiple falls at home with severe back pain, found multiple acute vertebral Fx and signs of UTI, found acute urinary retention
with >700ml PVR, haskins placed and urology advised to d/c on Haskins for outpatient follow up. With acute vertebral Fx - neuroSx advised to ambulate with brace
A/P:
#b/l LE weakness, can be 2/2 UTI
#Acute urinary retention
#Hematuria - resolved
possible hematuria 2/2 trauma during Haskins placement
cont Haskins - plan to d/c on it
concern for bladder outlet obstruction - cont tamsulosin, serial bladder scan, outpatient urology for cystoscopy
cont Rocephin
Ucx - S.agalactiae - sensitivity ordered
No hydronephrosis on CT
#Worsening hyponatremia
UOsm 656
improved on fluid restriction. Most liekly 2/2 pain
Chest XR without overt nodule or mass - just 3.4mm R lung calcification
#Mactrocytosis
check b12 and folate
#Fall without LOC (as reported by patient)
#ACUTE SUPERIOR and INFERIOR FRACTURES of L4 with mild loss of vertebral body height
#Acute nondisplaced fracture of the right posterior 12th rib.
#Acute nondisplaced fractures of the right L1 and L2 transverse processes.
pain mgmt
NeuroSx consult: brace and outpatient f/u
#AAA
3.1cm - US abdominal aorta in 1 year with PCP
#chronic healed right posterior rib fractures which have healed with moderate deformity
#Chronic healed left lower posterior rib fractures
no further mgmt
#Parkinson
#Cataract
#Seizure d/o
cont home meds
no reported seizures
DVT ppx SCDs
DNR/DNI
I have spent at least 59min reviewing chart, test results, communication with consultants and direct patient care
Anticipated Discharge: Within 24 hours
Subjective/Interval History
-
Date of Service: May 20, 2024
Objective Data
-
Labs:
Laboratory Results
05/19/24 05/20/24
21:23 07:03
WBC 6.4
Hgb 12.7 L
Hct 36.6 L
Plt Count 167
Sodium 127 L 132 L
Potassium 3.5 3.9
Chloride 93 L 93 L
Carbon Dioxide 29 32 H
BUN 16 11
Creatinine 0.7 0.6 L
Glucose 130 H 104 H
Calcium 8.5 8.7
Vital Signs:
Vital Signs
Temp Pulse Resp BP Pulse Ox
98.0 F 85 16 147/86 98
05/20/24 03:12 05/20/24 03:12 05/20/24 03:12 05/20/24 03:12 05/20/24 03:12
I&O
05/19/24 05/20/24 05/21/24
06:59 06:59 06:59
Intake Total 2280 / 2280 600 / 600
Output Total 1325 / 1325 1325 / 1325
Balance 955 / 955 -725 / -725
Review of Systems
-
History Source: Patient
All other systems: Reviewed and negative
Physical Exam
-
General: No Apparent Distress
Respiratory: Clear to Auscultation
Cardiac: Regular Rhythm
GI: Soft, Nontender and Nondistended
Genito-urinary: Clear Urine and Haskins
Neuro: Awake, Alert and Oriented
Psych: Calm
[2024-05-20] MEDS: FLOMAX 0.4 MG PO (09:35)
[2024-05-20] MEDS: SINEMET 25-100 1 TABLET PO ×3 (09:35→22:09)
[2024-05-20] MEDS: KEPPRA 500 MG PO ×2 (09:36→22:10)
[2024-05-20] MEDS: ProAmatine PO ×3 (09:36→22:10)
[2024-05-20] MEDS: LYRICA 75 MG PO ×2 (09:36→22:09)
[2024-05-20] MEDS: MYSOLINE 50 MG PO (09:36)
[2024-05-20] MEDS: ROXICODONE 5 MG PO (09:48)
--- NOTE | 2024-05-20 09:58 | PN.CDI ---
Addendum entered and electronically signed by Taiwo Herrera MD 05/20/24 14:19:
not septic on my assessment
Original Note:
CDI
- -
CDI:
Physician Documentation Request
Admit Date: 05/17/24 18:33
Dear Doctor Javier,
Please review the following and provide your response in the progress notes.
Clinical Indicators:
The diagnosis of sepsis was documented on 05/17 H&P but is not consistently noted in subsequent documentation.
- On admission: WBC 12.4, HR 100s, RR 20s
- 05/17 H&P 'Sepsis due to UTI...Evidence of leukocytosis, tachycardia, tachypnea, and source likely UTI'
- 05/20 PN 'b/l LE weakness, can be 2/2 UTI'
- UC with Strep agalactiae
- IV Ceftriaxone
- 2L IVF
Please clarify the following:
____ - Sepsis was present on admission and is now resolved.
____ - Sepsis was present on admission and is still being monitored, evaluated or treated
____ - Sepsis was ruled out
____ - Other (please specify)
Use of terms such as suspected, likely, concern for, or probable (associated with a specific diagnosis that is being evaluated, monitored, or treated as if it exists) are acceptable and can be coded in the inpatient setting, when documented at the
time of discharge.
Thank you,
Everton Stapleton RN
CDI Specialist
Please use your independent medical judgment in providing your response.
--- NOTE | 2024-05-20 10:48 | CM ---
manager of pharmacy reviewed patient's chart and met with patient and spouse at bedside, physical therapy are recommending acute rehab, options reviewed with patient and spouse and they are agreeable to [place] [facility], referral sent to [place]
and mental health case manager will follow up with admissions at [place], Physiatry consulted.
Plan; Acute rehab at [place].
[2024-05-20] MEDS: CYMBALTA DELAYED RELEASE 30 MG PO ×2 (11:01→22:10)
--- NOTE | 2024-05-20 11:09 | CON.MD ---
Consultation - Medical
-
Referring Provider:�Dr. Taiwo Herrera
Chief Complaint:�Lumbar vertebral fracture and rib fracture after fall
�
History of Present Illness:�68-year-old male with PMH (as below) presented to [facility] on 05/17/2024 after a fall going to the bathroom. He had been having several days of dysuria and urinary frequency. After the fall he is complaining of
back pain. Has had some recent upper respiratory symptoms. He follows with a neurologist at [facility] and is having progressive functional decline from Parkinson's disease. In the emergency department he was found to have leukocytosis and started
on broad spectrum antibiotics. He was also found to have urinary retention and a Griffin catheter was placed with plan for outpatient urology follow-up. CT of the head with no acute abnormalities. CT of the cervical spine noting severe disc disease
C4/C5, C5/C6, C6/C7 with moderate spinal canal stenosis and severe bilateral neuroforaminal narrowing, severe left C3/4 neuroforaminal narrowing and mild spinal cord compression and central stenosis at C2/C3 and C3/4. CT of the abdomen pelvis
noting acute superior and inferior L4 fractures, right posterior 12th rib fracture, right L1 and L2 transverse process fractures. Also noting severe diffuse irregular urinary bladder wall thickening to be consistent with severe cystitis, severe
chronic urinary bladder outlet obstruction or urothelial carcinoma. Lumbar/thoracic spine MRI with acute compression fracture L4 vertebral body, suggested mild extra dural hematoma complex fluid in the anterior lumbar spinal canal at L4-L5 and
severe spinal canal stenosis at L3/L4 and L4/L5 likely both congenital spinal canal stenosis and epidural lipomatosis possibly exacerbated by L4 fracture small amount of extradural blood products to the anterior lumbar spinal canal.
Seen by neurosurgery with no acute neurosurgical intervention, LSO bracing when upright, spinal precautions, and ambulating as well as pain control. Monitor neurologic status. Follow-up with Dr. Ferguson in 10 weeks.
�
Past Medical History:�Parkinson's disease, peripheral neuropathy, BPH, seizure disorder, irritable bowel syndrome, dyslipidemia, hereditary cerebellar ataxia, orthostatic hypotension.
Procedure History:�Left elbow and left ankle surgery
Family History:�None pertinent
�
Social History:�
Functional Level Premorbidly:�Modified independent with all activities�
Functional Level Currently:�Dependent for lower extremity self-care and toileting. Dependent for bed mobility. Max assist rolling
�
Tobacco:�Denies�
Alcohol:�Denies�
Drug use:�Denies�
�
Lives with:�Spouse
24-hour assistance available:�Yes
Number of floors:�2 story bilevel
# steps to enter:�0
# steps to second floor: Stair glide
Potential First floor set up:�Yes
Driving:�No
Occupation:�Retired
�
�
Allergies:�
Allergy/AdvReac Type Severity Reaction Status Date / Time
bacitracin Allergy Pharmacy Verified 05/17/24 14:34
to Review
gramicidin D Allergy Pharmacy Verified 05/17/24 14:34
to Review
neomycin Allergy Pharmacy Verified 05/17/24 14:34
to Review
polymyxin B Allergy Pharmacy Verified 05/17/24 14:34
to Review
�
Review of Systems:�
Constitutional: (x) abNormal _fatigue
Eye: (x) Normal _
Ear/Nose/Throat: (x) Normal _
Respiratory: (x) Normal _
Cardiovascular: (x) Normal _
Gastrointestinal: (x) Normal _
Genitourinary: (x) Normal _
Musculoskeletal: (x) abNormal _back pain
Integumentary: (x) Normal _
Neurologic: (x) Normal _
Psychiatric: (x) Normal _
Endocrine: (x) Normal _
Hematologic/Lymphatic: (x) Normal _
Allergic/Immunologic: (x) Normal _
�
Medications:�
Active Current Visit Medication List
Category Date Time Status
Acetaminophen [Tylenol] Med 05/17/24 19:38 Active
650 mg PO Q4HPRN PRN
Bisacodyl [Dulcolax] Med 05/17/24 19:38 Active
10 mg RECTAL [id number] PRN
Carbidopa/Levodopa [Sinemet 25-100] Med 05/17/24 18:25 Active
1 tablet PO TID
CefTRIAXone [Rocephin] Med 05/18/24 18:00 Active
1,000 mg IV Q24H
Docusate W/Senna [Senokot-S] Med 05/17/24 19:38 Active
1 tablet PO BIDPRN PRN
Duloxetine Delayed Release [Cymbalta Delayed Release] Med 05/17/24 20:00 Active
30 mg PO BID
Enoxaparin Sodium [Lovenox] Med 05/18/24 18:00 Hold
40 mg SC QPM
Flush (0.9% Sodium Chloride) [Flush (Nss)] Med 05/18/24 17:50 Active
See Dose Instructions IV BID@1750,1815
Flush (0.9% Sodium Chloride) [Flush (Nss)] Med 05/17/24 20:00 Active
See Dose Instructions IV PER PROTOCOL
HYDROmorphone [Dilaudid] Med 05/20/24 10:59 Active
2 mg PO Q4HPRN PRN
Latanoprost [Xalatan Ophthalmic Solution] Med 05/18/24 22:00 Active
See Dose Instructions BOTH EYES HS
Levetiracetam [Keppra] Med 05/17/24 20:00 Active
500 mg PO BID
Midodrine [ProAmatine] Med 05/18/24 16:00 Active
2.5 mg PO TID
Polyethylene Glycol Powder [Miralax] Med 05/17/24 19:38 Active
17 grams PO DAILYPRN PRN
Pregabalin [Lyrica] Med 05/17/24 20:00 Active
75 mg PO BID
Primidone [Mysoline] Med 05/17/24 18:25 Active
50 mg PO DAILY
Sterile Water [Sterile Water For Injection] Med 05/18/24 18:00 Active
10 ml IV Q24H
Tamsulosin [Flomax] Med 05/17/24 18:25 Active
0.4 mg PO DAILY
�
Vitals:�
Temp Pulse Resp BP Pulse Ox
97.9 F 80 18 155/77 97
05/20/24 08:38 05/20/24 09:36 05/20/24 08:38 05/20/24 09:36 05/20/24 08:38
Height 6 ft
Actual Weight 80.195 kg
Body Mass Index (BMI) 24.0
�
Physical Exam:�
General Appearance/Observation: Well-developed, well-nourished male in no apparent distress.� Has bilateral upper extremity tremors
Pain/Comfort Assessment: Denies�
Mood/Affect: Appropriate�
�
Integumentary/Operative Site:�
�� Pressure Ulcer Evaluation: absent over heels.�
�
Eyes: Conjunctiva/Lids: normal���� Pupils: pupils equal round and reactive to light and Accommodation�
Ears/Nose/Throat: oral mucosa moist,� throat clear.������������ Lips/Teeth/Gums: normal�
Cardiovascular: Heart: regular, no murmur�
Pulses: dorsalis pedis 2+ bilaterally�
Respiratory: Respiratory Effort/Chest Expansion: normal������� Auscultation: Clear to auscultation bilaterally�
Gastrointestinal: abdomen not tender, no distension, normal abdominal bowel sounds
Genitourinary: No Griffin�
Extremities:�Edema: None�Cyanosis: None�Trophic�changes: None
Neurology Exam:
Orientation: Alert, Oriented to self, year but not day of the week, Place�
Memory: Intact for basic information
Comprehension: Intact
Two step command: Intact
Cranial Nerves:
�� CNII:�Pupillary light reflex: Intact����Visual Field: Intact
�� CN III, IV, : Extraocular muscles: Intact�
�� CN V:�Facial Sensation�at�Forehead: Intact,�Maxilla: Intact,�Mandible: Intact
�� CN VII:�Facial movement: Symmetric
�� CN VIII:�Hearing: Normal
�� CN IX/X:�Speech & swallow: Normal,�Position of Uvula: Midline
�� CN XI:�Shoulder shrug: Symmetric
�� CN XII:�Tongue protrusion: Midline
Sensory:
�� Light touch: Intact in bilateral upper and lower extremities
�
Reflexes:
�� Biceps: 2+ bilaterally
�� Brachioradialis: 2+ bilaterally
�� Triceps: 2+ bilaterally
�� Patellar: 0 bilaterally
�� Achilles: 0 bilaterally
�� Babinski: Down going bilaterally
�� Clonus: None
�� Heidi: Negative bilaterally�
Cerebellar: Dysmetria/Ataxia: None�
Musculoskeletal: Motor: (Manual muscle scale 0-5)�
Muscle SA EF WE EE FF FA HF KE DF EHL PF
Right� 4 5 5 5 5 4 3 4 5 5
Left 5 5 5 5 5 4 3+ 4 5 5
�
Tone: Normal in all extremities�
Range of Motion: Passively within normal limits in all extremities�
�
Lab Results
Laboratory Data
05/20/24 07:03
05/20/24 07:03
Total Bilirubin 0.8 mg/dl (0.2-1.3) 05/19/24 06:32
AST 40 U/L (17-59) 05/19/24 06:32
ALT 13 U/L (0-50) 05/19/24 06:32
Alkaline Phosphatase 134 U/L (38-126) H 05/19/24 06:32
Total Protein 5.9 g/dl (6.3-8.2) L 05/19/24 06:32
Albumin 3.2 g/dl (3.5-5.0) L 05/19/24 06:32
�
Diagnostic Results:�as per HPI�
CT of the cervical spine
1. SEVERE DISCOGENIC DEGENERATIVE DISEASE at C4/C5, C5/C6, and C6/C7 with large disc-osteophyte complexes causing moderate spinal cord compression, moderate central canal stenosis, and severe bilateral neural foraminal narrowing.
2. VERY SEVERE LEFT-SIDED FACET JOINT ARTHROSIS at C3/C4 causing severe left neural foraminal narrowing.
3. Mild spinal cord compression and central canal stenosis at C2/C3 and C3/C4.
Assessment
68 y/o M PMH (Parkinson's disease, peripheral neuropathy, BPH, seizure disorder, irritable bowel syndrome, dyslipidemia, hereditary cerebellar ataxia, orthostatic hypotension) with 05/17/2024 fall resulting in acute superior and inferior L4 fractures,
right posterior 12th rib fracture, right L1 and L2 transverse process fractures, severe diffuse irregular urinary bladder wall thickening to be consistent with severe cystitis, severe chronic urinary bladder outlet obstruction or urothelial
carcinoma requiring Griffin, suggested mild extra dural hematoma complex fluid in the anterior lumbar spinal canal at L4-L5 and severe spinal canal stenosis at L3/L4 and L4/L5 likely both congenital spinal canal stenosis and epidural lipomatosis
possibly exacerbated by L4 fracture small amount of extradural blood products to the anterior lumbar spinal canal, with spinal precautions and LSO when out of bed with ADL and ambulatory dysfunction.
�
Plan�
PM&R�PT/OT to increase independence with ADLs, improve balance, coordination, endurance, strength, mobility, community reintegration, decreased burden of care on others and family education.�
�
L1/L2 transverse process fractures, acute superior and inferior L4 fracture, right 12th rib fracture: . Current pain seems related to fractures. No decreased light touch in lower extremities, lower extremity strength is good.� Does not appear to be
a neurologic concern in the legs.�
- no acute neurosurgical intervention, LSO bracing when upright, spinal precautions, and ambulating as well as pain control. Monitor neurologic status. Follow-up with Dr. Ferguson in 10 weeks.
-Pain: acetaminophen, Dilaudid, or oxycodone as needed.� Avoid tramadol with seizure history. Takes Lyrica 75 mg twice daily and duloxetine
-������� Currently on Dilaudid 2 mg every 4 hours as needed. May require scheduled pain medication in the morning and afternoon to get through exercises.
-������� Consider Tylenol 1,000 mg a Q8H
-������� NSAIDs if no renal or stomach concerns
-������� Lidocaine patch
-������� Try ice to the area to help break up muscle spasm and decrease inflammation.
-������� No heavy lifting
-������� Continue physical therapy to help with core strengthening.
-������� DEXA scan with her primary care provider and consider bisphosphonate if warranted with PCP or endocrinology.
�
Parkinson's disease: Carbidopa/levodopa, primidone. Likely significant cause for multiple falls. Could consider a Parkinson specific walker to help reduce falls. Discussed with patient
Urinary retention with concern for possible cystitis versus chronic bladder outlet obstruction versus urothelial carcinoma: Flomax, seen by urology continue with Griffin catheter for now with outpatient workup.
-On ceftriaxone for possible cystitis
Seizure history: Keppra
Glaucoma: Latanoprost
HLD: Statin�
Cervical degenerative disc disease with stenosis: Noted, not in acute concern, follow-up with neurosurgery.
Macrocytic anemia: Has normal B12 and folate. Continue to monitor.�
Psych: Psychology consult.� Monitor mood, adjust medications as needed.�
Skin: monitor for pressure sores/rashes/lesions.�
Bowel: Colace and Senna, PRN bisacodyl.�
GI Prophylaxis: Pantoprazole�
DVT Prophylaxis: Mechanical and Lovenox
Pulmonary: Incentive spirometry�
Safety: Continue to reinforce assistance with all transfers.�
Code Status:� DNR�per chart
Dispo�(date/plan/equipment needs): Home with family care.� Social history reviewed.�
Functional and Medical Goals:�Modified Independent with ADL�s, ambulation, transfers�
Discharge Destination:�Patient could qualify for acute inpatient rehabilitation program but given his level of pain would suggest skilled rehab at this time. After discussion this is his preference as well.
�
�
Summary of recommendations:
-�Discharge Destination:�jail facility
L1/L2 transverse process fractures, acute superior and inferior L4 fracture, right 12th rib fracture: . Current pain seems related to fractures. No decreased light touch in lower extremities, lower extremity strength is good.� Does not appear to be
a neurologic concern in the legs.�
- no acute neurosurgical intervention, LSO bracing when upright, spinal precautions, and ambulating as well as pain control. Monitor neurologic status. Follow-up with Dr. Ferguson in 10 weeks.
-������� Currently on Dilaudid 2 mg every 4 hours as needed.
-������� Consider Tylenol 1,000 mg a Q8H, avoid tramadol with seizure history.
-������� NSAIDs if no renal or stomach concerns
-������� Lidocaine patch
-������� Try ice to the area to help break up muscle spasm and decrease inflammation.
-������� No heavy lifting
-������� Continue physical therapy to help with core strengthening.
-������� DEXA scan with her primary care provider and consider bisphosphonate if warranted with PCP or endocrinology.
Parkinson's disease: Carbidopa/levodopa, primidone. Likely significant cause for multiple falls. Could consider a Parkinson specific walker to help reduce falls. Discussed with patient
-Orthostasis: Could be related to Parkinson's disease, takes midodrine 2.5 mg 3 times daily.
Urinary retention with concern for possible cystitis versus chronic bladder outlet obstruction versus urothelial carcinoma: Flomax, seen by urology continue with Griffin catheter for now with outpatient workup.
-On ceftriaxone for possible cystitis
Thank you for allowing me to care for your patient. Please contact me with any questions or concerns.
[2024-05-20] MEDS: DILAUDID 2 MG PO ×3 (11:15→22:20)
[2024-05-20 11:36] LABS: Folate > 20.0 ng/ml (2.76-20); Vitamin B12 > 1000 pg/ml (239-931)
--- NOTE | 2024-05-20 12:04 | W.PN.URO.CBU ---
Today's Communication / Plan
-
leave haskins consul [facility]
Assessment / Plan
-
bladder filled with pyuria reviewEd cat scan haskins draining gross pyuria over liter first hour Had hematuria on lovenox no evidence cancer etc hold lovenox if ok with hiospitalist Explained dx of retentio due to bpoh vs parkinsons
to probaly will leave haskins and t/c rehab or [facility]; [facility] contacted
Diagnosis
-
Date of Service: May 20, 2024
-
Patient Diagnosis:
Post Op Day:
Patient Diagnosis:urinary infection gross pyuria due to bph and neurogenic bladder of parkinsons
Post Op Day:
Subjective
-
urologically stable with haskins
Objective
-
Vital Signs
Temp Pulse Resp BP Pulse Ox
97.9 F 80 18 155/77 97
05/20/24 08:38 05/20/24 09:36 05/20/24 08:38 05/20/24 09:36 05/20/24 08:38
Intake and Output
05/19/24 05/20/24 05/21/24
06:59 06:59 06:59
Intake Total 2280 / 2280 600 / 600
Output Total 1325 / 1325 1325 / 1325
Balance 955 / 955 -725 / -725
Intake:
Oral fluids 1280 / 1280 600 / 600
IV fluids (Total) 1000 / 1000
IV piggybacks 0 / 0
Output:
Urine, Haskins 1325 / 1325 1325 / 1325
Laboratory Results
05/20/24 07:03
05/20/24 07:03
Review of Systems
-
: Difficulty Voiding
Physical Exam
-
General - well developed, well nourished, no acute distress
Chest - clear bilaterally
Abdomen - soft, non-tender, positive bowel sounds, no CVAT, no incisional pain or distention
Genitalia - normal
Rectal - normal
Skin - warm & dry with no rash
Neuro - AOx3, no motor deficits
Extremities - no clubbing, no cyanosis, no edema
Incision - clean, dry
Dressing - clean, dry, intact
Care Review
Data Reviewed
Discussed with: Nursing and Family ( )
[2024-05-20] MEDS: AMOXIL 500 MG PO ×2 (16:18→23:01)
[2024-05-20] MEDS: FLUSH (NSS) IV ×2 (16:18→16:21)
[2024-05-20] MEDS: XALATAN OPHTHALMIC SOLUTION 1 DROP BOTH EYES (22:19)
[2024-05-21 03:25] VITALS: BP 132/73
[2024-05-21] MEDS: DILAUDID 2 MG PO ×2 (06:37→10:58)
[2024-05-21 07:40] VITALS: BP 140/88
[2024-05-21] MEDS: FLOMAX 0.4 MG PO (08:46)
[2024-05-21] MEDS: MYSOLINE 50 MG PO (08:46)
[2024-05-21] MEDS: LYRICA 75 MG PO ×2 (08:46→20:30)
[2024-05-21] MEDS: KEPPRA 500 MG PO ×2 (08:46→20:30)
[2024-05-21] MEDS: CYMBALTA DELAYED RELEASE 30 MG PO ×2 (08:46→20:30)
[2024-05-21] MEDS: SINEMET 25-100 1 TABLET PO ×3 (08:46→22:40)
[2024-05-21] MEDS: ProAmatine PO ×3 (08:46→22:41)
[2024-05-21] MEDS: AMOXIL 500 MG PO ×2 (08:46→16:51)
[2024-05-21 11:16] VITALS: BP 96/72
--- NOTE | 2024-05-21 13:38 | W.PN.HOSP.TC ---
Today's Communication/Plan
-
Increase dilaudid
CM for rehab - medically stable for d/c
Assessment / Plan
Assessment / Plan
68yo M with Parkinsons, Hx of falls, seizure d/o, orthostatic hypotension, neuropathy, BPH, cataract, anxiety came after multiple falls at home with severe back pain, found multiple acute vertebral Fx and signs of UTI, found acute urinary retention
with >700ml PVR, haskins placed and urology advised to d/c on Haskins for outpatient follow up. With acute vertebral Fx - neuroSx advised to ambulate with brace
A/P:
#b/l LE weakness, can be 2/2 UTI
#Acute urinary retention
#Hematuria - resolved
possible hematuria 2/2 trauma during Haskins placement
cont Haskins - plan to d/c on it
concern for bladder outlet obstruction - cont tamsulosin, serial bladder scan, outpatient urology for cystoscopy
cont Rocephin
Ucx - S.agalactiae - sensitive to ampicillin -Abx changed
No hydronephrosis on CT
#hyponatremia
Improved
UOsm 656
improved on fluid restriction. Most liekly 2/2 pain
Chest XR without overt nodule or mass - just 3.4mm R lung calcification
#Mactrocytosis
check b12 and folate
#Fall without LOC (as reported by patient)
#ACUTE SUPERIOR and INFERIOR FRACTURES of L4 with mild loss of vertebral body height
#Acute nondisplaced fracture of the right posterior 12th rib.
#Acute nondisplaced fractures of the right L1 and L2 transverse processes.
pain mgmt
NeuroSx consult: brace, pain mgmt and outpatient f/u
#AAA
3.1cm - US abdominal aorta in 1 year with PCP
#chronic healed right posterior rib fractures which have healed with moderate deformity
#Chronic healed left lower posterior rib fractures
no further mgmt
#Parkinson
#Cataract
#Seizure d/o
cont home meds
no reported seizures
DVT ppx SCDs
DNR/DNI
I have spent at least 39min reviewing chart, test results, communication with consultants and direct patient care
Anticipated Discharge: Within 24 hours
Subjective/Interval History
-
Date of Service: May 21, 2024
Objective Data
-
Vital Signs:
Vital Signs
Temp Pulse Resp BP Pulse Ox
97.9 F 103 18 96/72 95
05/21/24 11:16 05/21/24 11:16 05/21/24 11:16 05/21/24 11:16 05/21/24 11:16
I&O
05/20/24 05/21/24 05/22/24
06:59 06:59 06:59
Intake Total 600 / 600 1200 / 1200
Output Total 1325 / 1325 2225 / 2225
Balance -725 / -725 -1025 / -1025
Review of Systems
-
History Source: Patient
All other systems: Reviewed and negative
Musculoskeletal: Reports Other (back pain)
Physical Exam
-
General: No Apparent Distress
HEENT: Normocephalic
Respiratory: Clear to Auscultation
GI: Soft, Nontender and Nondistended
Genito-urinary: Haskins
Musculoskeletal: No Clubbing, No Cyanosis and No Edema
Neuro: Awake, Alert, Oriented and AO x 3
[2024-05-21 15:23] VITALS: BP 105/74
[2024-05-21] MEDS: FLUSH (NSS) IV ×2 (16:32)
[2024-05-21 19:02] VITALS: BP 107/72
[2024-05-21] MEDS: DILAUDID 3 MG PO (20:30)
[2024-05-21] MEDS: XALATAN OPHTHALMIC SOLUTION 1 DROP BOTH EYES (22:41)
[2024-05-22] VITALS (8 sets, daily range): BP systolic 104–161; BP diastolic 70–80; PULSE 92; O2SAT 94
[2024-05-22] MEDS: DILAUDID 3 MG PO ×2 (00:27→06:12)
[2024-05-22] MEDS: AMOXIL 500 MG PO ×4 (00:27→23:27)
--- NOTE | 2024-05-22 08:57 | CM ---
Addendum entered by CESAR Mojica 05/22/24 14:32:
Patient's called and asked that referrals are sent to [facility] as [facility].
Spoke with Cami in admissions at [facility] who stated that she will be able to take patient on Saturday. If no beds are offered by other facilities will set patient up to transport to [facility] (will update patient's )
[facility] # For report [phone] and fax# [phone]
Addendum entered by CESAR Mojica 05/22/24 10:34:
Met with patient to update about [facility]. He stated that he would rather go to SNF anyway. Reviewed options, and he chose: [facility], [facility] and [facility]. Referrals sent.
Original Note:
Placed a call to [facility] product development coordinator, Noemi, who stated that per Dr. Quezada, patient is more appropriate for SNF level of care and therefore they will decline.
Will meet with patient to discuss SNF options.
Plan: Case management will continue to follow and assist with discharge planning. SNF.
--- NOTE | 2024-05-22 09:18 | W.PN.HOSP.TC ---
Today's Communication/Plan
-
increased dilaudid, RN advised to use at least 1h before PT/OT, watch for sedation/respiratory suppression
NeuroSx to review for vertebroplasty as still significant pain when patient is upright
Assessment / Plan
Assessment / Plan
68yo M with Parkinsons, Hx of falls, seizure d/o, orthostatic hypotension, neuropathy, BPH, cataract, anxiety came after multiple falls at home with severe back pain, found multiple acute vertebral Fx and signs of UTI, found acute urinary retention
with >700ml PVR, haskins placed and urology advised to d/c on Haskins for outpatient follow up. With acute vertebral Fx - neuroSx advised to ambulate with brace
A/P:
#b/l LE weakness, can be 2/2 UTI
#Acute urinary retention
#Hematuria - resolved
possible hematuria 2/2 trauma during Haskins placement
cont Haskins - plan to d/c on it
concern for bladder outlet obstruction - cont tamsulosin, serial bladder scan, outpatient urology for cystoscopy
cont Rocephin
Ucx - S.agalactiae - sensitive to ampicillin -Abx changed
No hydronephrosis on CT
#hyponatremia
Improved
UOsm 656
improved on fluid restriction. Most liekly 2/2 pain
Chest XR without overt nodule or mass - just 3.4mm R lung calcification
#Mactrocytosis
check b12 and folate
#Fall without LOC (as reported by patient)
#ACUTE SUPERIOR and INFERIOR FRACTURES of L4 with mild loss of vertebral body height
#Acute nondisplaced fracture of the right posterior 12th rib.
#Acute nondisplaced fractures of the right L1 and L2 transverse processes.
pain mgmt
NeuroSx consult: brace, pain mgmt and outpatient f/u
#AAA
3.1cm - US abdominal aorta in 1 year with PCP
#chronic healed right posterior rib fractures which have healed with moderate deformity
#Chronic healed left lower posterior rib fractures
no further mgmt
#Parkinson
#Cataract
#Seizure d/o
cont home meds
no reported seizures
DVT ppx SCDs
DNR/DNI
I have spent at least 55min reviewing chart, test results, communication with consultants and direct patient care
Anticipated Discharge: Within 24 hours
Subjective/Interval History
-
Date of Service: May 22, 2024
Objective Data
-
Vital Signs:
Vital Signs
Temp Pulse Resp BP Pulse Ox
98.3 F 93 18 109/71 95
05/22/24 07:29 05/22/24 07:29 05/22/24 07:29 05/22/24 07:29 05/22/24 07:29
I&O
05/21/24 05/22/24 05/23/24
06:59 06:59 06:59
Intake Total 1200 / 1200 1320 / 1320
Output Total 2225 / 2225 1800 / 1800
Balance -1025 / -1025 -480 / -480
Review of Systems
-
History Source: Patient
All other systems: Reviewed and negative
Musculoskeletal: Reports Other (Lower back pain)
[2024-05-22] MEDS: SINEMET 25-100 1 TABLET PO ×3 (10:25→23:27)
[2024-05-22] MEDS: FLOMAX 0.4 MG PO (10:25)
[2024-05-22] MEDS: KEPPRA 500 MG PO ×2 (10:26→19:10)
[2024-05-22] MEDS: MYSOLINE 50 MG PO (10:26)
[2024-05-22] MEDS: CYMBALTA DELAYED RELEASE 30 MG PO ×2 (10:26→19:10)
[2024-05-22] MEDS: ProAmatine 2.5 MG PO ×2 (10:26→16:28)
[2024-05-22] MEDS: DILAUDID 4 MG PO ×3 (10:26→23:28)
[2024-05-22] MEDS: LYRICA 75 MG PO ×2 (12:18→19:10)
[2024-05-22] MEDS: FLUSH (NSS) IV ×2 (16:22→16:23)
[2024-05-22] MEDS: XALATAN OPHTHALMIC SOLUTION 1 DROP BOTH EYES (23:28)
[2024-05-22] MEDS: ProAmatine PO (23:28)
[2024-05-23] VITALS (7 sets, daily range): BP systolic 112–125; BP diastolic 61–80; PULSE 98; O2SAT 97
[2024-05-23] MEDS: ProAmatine 2.5 MG PO ×2 (07:58→15:25)
[2024-05-23] MEDS: FLOMAX 0.4 MG PO (07:58)
[2024-05-23] MEDS: CYMBALTA DELAYED RELEASE 30 MG PO ×2 (07:58→19:28)
[2024-05-23] MEDS: SINEMET 25-100 1 TABLET PO ×3 (07:59→23:07)
[2024-05-23] MEDS: AMOXIL 500 MG PO ×3 (07:59→23:07)
[2024-05-23] MEDS: MYSOLINE 50 MG PO (07:59)
[2024-05-23] MEDS: KEPPRA 500 MG PO ×2 (07:59→19:28)
[2024-05-23] MEDS: LYRICA 75 MG PO ×2 (07:59→19:28)
[2024-05-23] MEDS: MIRALAX 17 GRAMS PO (08:00)
[2024-05-23] MEDS: DILAUDID 4 MG PO ×4 (08:02→23:15)
--- NOTE | 2024-05-23 08:19 | W.PN.HOSP.TC ---
Today's Communication/Plan
-
cont same pain meds- still poor control - significant lower back pain when upright. Patient reports sleepiness after each dilaudid dose - will not increase
Discussed with NeuroSx - advised attempt vertebroplasty, IRAD consulted
Assessment / Plan
Assessment / Plan
68yo M with Parkinsons, Hx of falls, seizure d/o, orthostatic hypotension, neuropathy, BPH, cataract, anxiety came after multiple falls at home with severe back pain, found multiple acute vertebral Fx and signs of UTI, found acute urinary retention
with >700ml PVR, haskins placed and urology advised to d/c on [facility] for outpatient follow up. With acute vertebral Fx - neuroSx advised to ambulate with brace
A/P:
#b/l LE weakness, can be 2/2 UTI
#Acute urinary retention
#Hematuria - resolved
possible hematuria 2/2 trauma during Haskins placement
cont Haskins - plan to d/c on it
concern for bladder outlet obstruction - cont tamsulosin, serial bladder scan, outpatient urology for cystoscopy
cont Rocephin
Ucx - S.agalactiae - sensitive to ampicillin -Abx changed
No hydronephrosis on CT
#hyponatremia
Improved
UOsm 656
improved on fluid restriction. Most liekly 2/2 pain
Chest XR without overt nodule or mass - just 3.4mm R lung calcification
#Macrocytosis
b12 and folate WNL
#Fall without LOC (as reported by patient)
#ACUTE SUPERIOR and INFERIOR FRACTURES of L4 with mild loss of vertebral body height
#Acute nondisplaced fracture of the right posterior 12th rib.
#Acute nondisplaced fractures of the right L1 and L2 transverse processes.
pain mgmt
NeuroSx consult: brace, pain mgmt, since failed - plan for vertebroplasty, the next step would be laminectomy and fusion 2/2 stenosis
IRAD consult
#AAA
3.1cm - US abdominal aorta in 1 year with PCP
#chronic healed right posterior rib fractures which have healed with moderate deformity
#Chronic healed left lower posterior rib fractures
no further mgmt
#Parkinson
#Cataract
#Seizure d/o
cont home meds
no reported seizures
DVT ppx SCDs
DNR/DNI
I have spent at least 35min reviewing chart, test results, communication with consultants and direct patient care
Anticipated Discharge: > 48 hours
Subjective/Interval History
-
Date of Service: May 23, 2024
Objective Data
-
Vital Signs:
Vital Signs
Temp Pulse Resp BP Pulse Ox
97.7 F 98 18 112/69 94
05/23/24 07:00 05/23/24 07:00 05/23/24 07:00 05/23/24 07:00 05/23/24 07:00
I&O
05/22/24 05/23/24 05/24/24
06:59 06:59 06:59
Intake Total 1320 / 1320 480 / 480
Output Total 1800 / 1800 1350 / 1350
Balance -480 / -480 -870 / -870
Review of Systems
-
History Source: Patient
All other systems: Reviewed and negative
Musculoskeletal: Reports Other (Lower back pain radiating to the hip)
Physical Exam
-
General: No Apparent Distress
Neuro: Awake, Alert, Oriented and AO x 3
Psych: Calm
[2024-05-23] MEDS: FLUSH (NSS) IV ×2 (16:34)
[2024-05-23] MEDS: XALATAN OPHTHALMIC SOLUTION 1 DROP BOTH EYES (23:07)
[2024-05-23] MEDS: ProAmatine PO (23:10)
[2024-05-24] MEDS: DILAUDID 4 MG PO ×4 (05:56→23:54)
[2024-05-24 07:10] VITALS: BP 128/76
[2024-05-24] MEDS: SINEMET 25-100 1 TABLET PO ×3 (07:41→23:54)
[2024-05-24] MEDS: CYMBALTA DELAYED RELEASE 30 MG PO ×2 (07:41→20:06)
[2024-05-24] MEDS: LYRICA 75 MG PO ×2 (07:41→20:07)
[2024-05-24] MEDS: MYSOLINE 50 MG PO (07:42)
[2024-05-24] MEDS: KEPPRA 500 MG PO ×2 (07:42→20:07)
[2024-05-24] MEDS: ProAmatine 2.5 MG PO (07:42)
[2024-05-24] MEDS: AMOXIL 500 MG PO ×3 (07:42→23:54)
[2024-05-24] MEDS: FLOMAX 0.4 MG PO (07:42)
--- NOTE | 2024-05-24 09:01 | W.PN.HOSP.TC ---
Today's Communication/Plan
-
pending vertebroplasty
still with significant back pain without new neurological deficit or paresthesia of LE
Assessment / Plan
Assessment / Plan
68yo M with Parkinsons, Hx of falls, seizure d/o, orthostatic hypotension, neuropathy, BPH, cataract, anxiety came after multiple falls at home with severe back pain, found multiple acute vertebral Fx and signs of UTI, found acute urinary retention
with >700ml PVR, haskins placed and urology advised to d/c on [facility] for outpatient follow up. With acute vertebral Fx - neuroSx advised to ambulate with brace and due to poor pain control - vertebroplasty. WIll need outpatient follow up with neuroSx
for possible laminectomy due to spinal stenosis
A/P:
#b/l LE weakness, can be 2/2 UTI
#Acute urinary retention
#Hematuria - resolved
possible hematuria 2/2 trauma during Haskins placement
cont Haskins - plan to d/c on it
concern for bladder outlet obstruction - cont tamsulosin, serial bladder scan, outpatient urology for cystoscopy
cont Rocephin
Ucx - S.agalactiae - sensitive to ampicillin -Abx changed
No hydronephrosis on CT
#hyponatremia
Improved
UOsm 656
improved on fluid restriction. Most liekly 2/2 pain
Chest XR without overt nodule or mass - just 3.4mm R lung calcification
#Macrocytosis
b12 and folate WNL
#Fall without LOC (as reported by patient)
#ACUTE SUPERIOR and INFERIOR FRACTURES of L4 with mild loss of vertebral body height
#Acute nondisplaced fracture of the right posterior 12th rib.
#Acute nondisplaced fractures of the right L1 and L2 transverse processes.
pain mgmt
NeuroSx consult: brace, pain mgmt, since failed - plan for vertebroplasty, the next step would be laminectomy and fusion 2/2 stenosis
IRAD consult
#AAA
3.1cm - US abdominal aorta in 1 year with PCP
#chronic healed right posterior rib fractures which have healed with moderate deformity
#Chronic healed left lower posterior rib fractures
no further mgmt
#Parkinson
#Cataract
#Seizure d/o
cont home meds
no reported seizures
DVT ppx SCDs
DNR/DNI
I have spent at least 35min reviewing chart, test results, communication with consultants and direct patient care
Anticipated Discharge: 24 - 48 hours
Subjective/Interval History
-
Date of Service: May 24, 2024
Objective Data
-
Vital Signs:
Vital Signs
Temp Pulse Resp BP Pulse Ox
97.9 F 96 18 128/70 96
05/24/24 07:10 05/24/24 07:42 05/24/24 07:10 05/24/24 07:42 05/24/24 07:10
I&O
05/23/24 05/24/24 05/25/24
06:59 06:59 06:59
Intake Total 480 / 480 960 / 960
Output Total 1350 / 1350 1550 / 1550
Balance -870 / -870 -590 / -590
Review of Systems
-
History Source: Patient
All other systems: Reviewed and negative
Musculoskeletal: Reports Other (lower back pain)
Physical Exam
-
General: No Apparent Distress
HEENT: Normocephalic
Neuro: Awake, Alert, Oriented, AO x 3 and Tremors
Psych: Calm
--- NOTE | 2024-05-24 09:53 | PN.NS ---
Subjective
-
Patient reevaluated this a.m. due to severe complaints of low back pain. He does complain of right leg radicular pain in L5 distribution. He is unable to ambulate secondary to back and leg pain. Patient was discussed with hospital service, they
are planning on vertebroplasty with interventional radiology at the L4 level.
Physical Exam
-
Exam:
VSS
Patient awake, alert and oriented to person, place and time
speech: clear/fluent
CN 2012 grossly intact
multiple bruises present
+tremor
non labored breathing
motor: 5/5 with the exception of 4/5 in RIGHT KE.
sensation intact to crude touch
CT lumbar spine and MRI lumbar spine imaging personally reviewed and interpreted by myself and attending.
official report as below.
THORACIC MRI:
1. No MRI evidence for an acute posttraumatic abnormality of the thoracic spine.
LUMBAR MRI:
1. Moderate acute compression fracture of the L4 vertebral body with 30% loss of height and minor retropulsion of the posterior cortex.
2. Suggestion of mild extradural hematoma/complex fluid in the anterior lumbar spinal canal at L4-L5 measuring 3 mm in thickness.
3. 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
degree of L4 retropulsion and the small amount of extradural blood products in the anterior lumbar spinal canal.
CT C/A/P
1. ACUTE SUPERIOR and INFERIOR FRACTURES of L4 with mild loss of vertebral body height.
2. Acute nondisplaced fracture of the right posterior 12th rib.
3. Acute nondisplaced fractures of the right L1 and L2 transverse processes.
4. Multiple chronic healed bilateral rib fractures.
5. No CT evidence for acute pelvic or proximal femoral fracture.
6. Severe diffuse hepatic steatosis.
7. Mild chronic bilateral renal disease.
8. Fusiform infrarenal abdominal aortic aneurysm (3.1 cm AP dimension).
9. Severe calcific atherosclerotic plaque in the abdominal aorta, iliac, and femoral arteries.
10. SEVERE DIFFUSE IRREGULAR URINARY BLADDER WALL THICKENING with mild perivesical inflammation and urinary bladder distention. Diagnostic possibilities are (1) severe cystitis, (2) severe chronic urinary bladder outlet obstruction, or (3)
urothelial carcinoma.
Assessment / Plan
-
This is a 68 y/o M who presents s/p fall with acute L4 fracture with degenerative stenosis at L3/4, L4/5
Currently patient complains of significant pain. Unable to tolerate bracing
Will follow-up after vertebroplasty to see if he obtains significant relief.
If unable to ambulate leg pain continues following vertebroplasty recommend L3-5 posterior spinal instrumented fusion with laminectomies from L3-L5. I discussed this with the patient and his .
Please notify neurosurgery once vertebroplasty is completed.
Today's Communication
-
[2024-05-24 10:09] LABS: Blood Urea Nitrogen 10 mg/dl (9-20); Calcium 8.6 mg/dl (8.4-10.2); Carbon Dioxide 34 mmol/L (22-30); Chloride 91 mmol/L (98-107); Estimated Creatinine Clearance > 125 ml/min; Glucose 114 mg/dl (70-99); Potassium 4.1 mmol/L (3.5-5.1); Sodium 130 mmol/L (135-145); eGFR > 60.00
[2024-05-24] MEDS: ProAmatine PO ×2 (15:18→22:49)
[2024-05-24] MEDS: FLUSH (NSS) IV ×2 (15:20)
[2024-05-24 15:48] VITALS: BP 118/64; PULSE 95; O2SAT 95
[2024-05-24 16:51] VITALS: BP 119/71
[2024-05-24] MEDS: SENOKOT-S 1 TABLET PO (20:06)
[2024-05-24 23:00] VITALS: BP 129/72
[2024-05-24] MEDS: XALATAN OPHTHALMIC SOLUTION 1 DROP BOTH EYES (23:55)
[2024-05-25 07:36] VITALS: BP 145/88
[2024-05-25 08:13] LABS: Blood Urea Nitrogen 11 mg/dl (9-20); Carbon Dioxide 32 mmol/L (22-30); Chloride 92 mmol/L (98-107); Estimated Creatinine Clearance 108 ml/min; Glucose 108 mg/dl (70-99); Potassium 3.8 mmol/L (3.5-5.1); Sodium 131 mmol/L (135-145); eGFR > 60.00
--- NOTE | 2024-05-25 08:28 | W.PN.HOSP.TC ---
Today's Communication/Plan
-
no new neurologic deficit
for vertebroplasty
sodium stable - cont FR
Assessment / Plan
Assessment / Plan
68yo M with Parkinsons, Hx of falls, seizure d/o, orthostatic hypotension, neuropathy, BPH, cataract, anxiety came after multiple falls at home with severe back pain, found multiple acute vertebral Fx and signs of UTI, found acute urinary retention
with >700ml PVR, haskins placed and urology advised to d/c on [facility] for outpatient follow up. With acute vertebral Fx - neuroSx advised to ambulate with brace and due to poor pain control - vertebroplasty. WIll need outpatient follow up with neuroSx
for possible laminectomy due to spinal stenosis
A/P:
#b/l LE weakness, can be 2/2 UTI
#Acute urinary retention
#Hematuria - resolved
possible hematuria 2/2 trauma during Haskins placement
cont Haskins - plan to d/c on it
concern for bladder outlet obstruction - cont tamsulosin, serial bladder scan, outpatient urology for cystoscopy
cont Rocephin
Ucx - S.agalactiae - sensitive to ampicillin -Abx changed
No hydronephrosis on CT
#hyponatremia
Improved
UOsm 656
improved on fluid restriction. Most liekly 2/2 pain
Chest XR without overt nodule or mass - just 3.4mm R lung calcification
#Macrocytosis
b12 and folate WNL
#Fall without LOC (as reported by patient)
#ACUTE SUPERIOR and INFERIOR FRACTURES of L4 with mild loss of vertebral body height
#Acute nondisplaced fracture of the right posterior 12th rib.
#Acute nondisplaced fractures of the right L1 and L2 transverse processes.
pain mgmt
NeuroSx consult: brace, pain mgmt, since failed - plan for vertebroplasty, the next step would be laminectomy and fusion 2/2 stenosis
IRAD consult
#AAA
3.1cm - US abdominal aorta in 1 year with PCP
#chronic healed right posterior rib fractures which have healed with moderate deformity
#Chronic healed left lower posterior rib fractures
no further mgmt
#Parkinson
#Cataract
#Seizure d/o
cont home meds
no reported seizures
DVT ppx SCDs
DNR/DNI
I have spent at least 35min reviewing chart, test results, communication with consultants and direct patient care
Anticipated Discharge: Within 24 hours
Subjective/Interval History
-
Date of Service: May 25, 2024
Objective Data
-
Labs:
Laboratory Results
05/25/24
06:59
Sodium 131 L
Potassium 3.8
Chloride 92 L
Carbon Dioxide 32 H
BUN 11
Creatinine 0.7
Glucose 108 H
Calcium 9.0
Vital Signs:
Vital Signs
Temp Pulse Resp BP Pulse Ox
97.3 F 94 18 145/88 94
05/25/24 07:36 05/25/24 07:36 05/25/24 07:36 05/25/24 07:36 05/25/24 07:36
I&O
05/24/24 05/25/24 05/26/24
06:59 06:59 06:59
Intake Total 960 / 960 480 / 480
Output Total 1550 / 1550 2375 / 2375
Balance -590 / -590 -1895 / -1895
Review of Systems
-
History Source: Patient
All other systems: Reviewed and negative
Musculoskeletal: Reports Other (lower back pain)
Physical Exam
-
General: No Apparent Distress
Neuro: Awake, Alert, Oriented and AO x 3
Psych: Calm
[2024-05-25] MEDS: SINEMET 25-100 1 TABLET PO ×3 (09:44→23:32)
[2024-05-25] MEDS: FLOMAX 0.4 MG PO (09:44)
[2024-05-25] MEDS: MYSOLINE 50 MG PO (09:44)
[2024-05-25] MEDS: LYRICA 75 MG PO ×2 (09:44→20:04)
[2024-05-25] MEDS: AMOXIL 500 MG PO ×3 (09:44→23:31)
[2024-05-25] MEDS: ProAmatine 2.5 MG PO ×2 (09:44→16:15)
[2024-05-25] MEDS: DILAUDID 4 MG PO ×4 (09:45→23:57)
[2024-05-25] MEDS: KEPPRA 500 MG PO ×2 (09:45→20:05)
[2024-05-25] MEDS: CYMBALTA DELAYED RELEASE 30 MG PO ×2 (09:45→20:03)
--- NOTE | 2024-05-25 10:33 | W.PN.GENERIC ---
Assessment / Plan
-
This is a pleasant 68-year-old male with symptomatic [id number] fracture after a fall. The symptoms are interfering with his activities of daily living. We discussed treatment options including conservative management with brace and pain
medication, SHIMA injection and vertebral augmentation. He has no comorbidities that would interfere with planned treatment. I believe he should be a good candidate for vertebral augmentation.
I discussed the technique of vertebral body augmentation including the logistics, risks and benefits, success and failure rates as well as alternatives with the patient and hi . Risks include but are not limited to: incomplete treatment, need
for surgery, infection, abscess formation, spinal cord injury and paralysis.� We discussed the probability of outcomes and the length of convalescence post procedure.� The procedure will be performed with anesthesia support. He and his are
agreeable to scheduling the procedure.
Our plan is to perform the procedure this . He will need an INR prior to the procedure. He will need to be NPO after midnight on . We will coordinate with anesthesia for a time
I spent over one hour in counseling and coordination of care with the patient, reviewing previous medical records, laboratory studies and all relevant imaging, including history taking, physical exam and documentation as well as discussing the
procedure and expected outcome with the patient.
Physician Progress Note
Subjective
Interventional Radiology Consult
Dx: L4 Compession Fracture
This is a 68 year old male with history of Parkinson's disease, peripheral neuropathy, BPH, seizure disorder, dyslipidemia and orthostatic hypotension, who came into the hospital after a fall. The patient states he fell house father of May 17
when he was walking to the bathroom. He states he slipped and fell onto his back. He notes the pain has been progressively getting worse. He has pain and weakness down his right leg. He normally ambulates with a walker but has not been able to do
so since the fall. He denies loss of bowel or bladder control. He denies dizziness or lightheadedness. He denies syncope or seizure activity. He denies fevers or chills. He denies chest pain or shortness of breath. He did have some mild URI
symptoms and rhinorrhea but no worsening cough or shortness of breath. He had an MRI which demonstrates an acute L4 compression fracture.
Past Medical History
Parkinson's disease, peripheral neuropathy, BPH, seizure disorder, irritable bowel syndrome, dyslipidemia, hereditary cerebellar ataxia, orthostatic hypotension
Past Surgical History:
Left elbow and left ankle surgery
Social History
Tobacco: Non-smoker
Living: and lives at home with
Allergies
Allergy/AdvReac Type Severity Reaction Status Date / Time
bacitracin Allergy Pharmacy Verified 05/17/24 14:34
to Review
gramicidin D Allergy Pharmacy Verified 05/17/24 14:34
to Review
neomycin Allergy Pharmacy Verified 05/17/24 14:34
to Review
polymyxin B Allergy Pharmacy Verified 05/17/24 14:34
to Review
Home Medications
Carbidopa-levodopa PO TID, CoQ enzyme 200mg PO Qd, duloxetine 30 MG PO bid, Latanoprost 1 gtt OU bid, levetiracetam 500 mg PO BID, midodrine 5mg PO TID, pregabalin 75 mg PO BID, primidone 50 mg QHS, tamsulosin 0.4 mg po qd
Objective
Vital Signs
Temp Pulse Resp BP Pulse Ox
97.3 F 94 18 145/88 94
05/25/24 07:36 05/25/24 09:44 05/25/24 07:36 05/25/24 09:44 05/25/24 07:36
Lab Results
05/20/24 07:03
05/25/24 06:59
This is a WNWD 68 yo male lying in bed. Color is good. Skin is warm and dry. Heart is regular. Lungs are CTA. Abdomen is soft, round and nontender with bowel sounds. There is tenderness over the lower lumbar spine to palpation. Right SLR
elicits pain but no paresthesias. DTR +1 BL. Sensation maintained. Strength 4/5 in right LE 5/5 in left LE. Palpable pulses. Resting tremor noted
[2024-05-25 10:57] VITALS: BP 120/73; PULSE 70; O2SAT 94
--- NOTE | 2024-05-25 11:19 | CM ---
CM reviewed chart and pt with nursing
Pt planned for OR/vertebroplasty on Thr 05/28
Pt initially denied by [facility], SNF referrals were sent and pending
CM to follow for post-op needs
Discharge Disposition- TBD, acute vs SNF
[2024-05-25 11:20] VITALS: BP 134/87; PULSE 98; O2SAT 93
[2024-05-25 15:15] VITALS: BP 113/68
[2024-05-25] MEDS: FLUSH (NSS) IV ×2 (16:15)
[2024-05-25] MEDS: SENOKOT-S 1 TABLET PO (20:04)
[2024-05-25 23:23] VITALS: BP 118/71
[2024-05-25] MEDS: ProAmatine PO (23:32)
[2024-05-25] MEDS: XALATAN OPHTHALMIC SOLUTION 1 DROP BOTH EYES (23:32)
[2024-05-26] MEDS: DILAUDID 4 MG PO ×3 (05:58→19:50)
[2024-05-26 07:34] VITALS: BP 131/67
[2024-05-26] MEDS: CYMBALTA DELAYED RELEASE 30 MG PO ×2 (09:50→19:50)
[2024-05-26] MEDS: KEPPRA 500 MG PO ×2 (09:50→19:50)
[2024-05-26] MEDS: AMOXIL 500 MG PO ×3 (09:50→23:11)
[2024-05-26] MEDS: SINEMET 25-100 1 TABLET PO ×3 (09:50→23:12)
[2024-05-26] MEDS: MYSOLINE 50 MG PO (09:51)
[2024-05-26] MEDS: ProAmatine 2.5 MG PO (09:51)
[2024-05-26] MEDS: LYRICA 75 MG PO ×2 (09:51→19:50)
[2024-05-26] MEDS: FLOMAX 0.4 MG PO (09:51)
--- NOTE | 2024-05-26 10:20 | W.PN.HOSP.TC ---
Today's Communication/Plan
-
await vertebroplasty on 05/28/24
Assessment / Plan
Assessment / Plan
68yo M with Parkinsons, Hx of falls, seizure d/o, orthostatic hypotension, neuropathy, BPH, cataract, anxiety came after multiple falls at home with severe back pain, found multiple acute vertebral Fx and signs of UTI, found acute urinary retention
with >700ml PVR, haskins placed and urology advised to d/c on [facility] for outpatient follow up. With acute vertebral Fx - neuroSx advised to ambulate with brace and due to poor pain control - vertebroplasty scheduled for 05/28/24 with IRAD. Will need
outpatient follow up with neuroSx for possible laminectomy due to spinal stenosis
A/P:
#Fall without LOC (as reported by patient)
#ACUTE SUPERIOR and INFERIOR FRACTURES of L4 with mild loss of vertebral body height
#Acute nondisplaced fracture of the right posterior 12th rib.
#Acute nondisplaced fractures of the right L1 and L2 transverse processes.
pain mgmt
NeuroSx consult: brace, pain mgmt, since failed - plan for vertebroplasty, the next step would be laminectomy and fusion 2/2 stenosis
IRAD consult - NPO and labs on AM for vertebroplasty on 05/28/24
#b/l LE weakness, can be 2/2 UTI
#Acute urinary retention
#Hematuria - resolved
possible hematuria 2/2 trauma during Haskins placement
cont Haskins - plan to d/c on it as per Urology for outpatient follow up
concern for bladder outlet obstruction - cont tamsulosin, serial bladder scan, outpatient urology for cystoscopy
Ucx - S.agalactiae - sensitive to ampicillin -Abx changed
No hydronephrosis on CT
#hyponatremia
Improved
UOsm 656
improved on fluid restriction. Most likely 2/2 pain
Chest XR without overt nodule or mass - just 3.4mm R lung calcification
#Macrocytosis
b12 and folate WNL
outpatient hematology advised
#AAA
3.1cm - US abdominal aorta in 1 year with PCP
#chronic healed right posterior rib fractures which have healed with moderate deformity
#Chronic healed left lower posterior rib fractures
no further mgmt
#Parkinson
#Cataract
#Seizure d/o
cont home meds
no reported seizures
DVT ppx SCDs
DNR/DNI
I have spent at least 35min reviewing chart, test results, communication with consultants and direct patient care
Anticipated Discharge: 24 - 48 hours
Subjective/Interval History
-
Date of Service: May 26, 2024
Objective Data
-
Vital Signs:
Vital Signs
Temp Pulse Resp BP Pulse Ox
97.7 F 100 18 131/67 95
05/26/24 07:34 05/26/24 09:51 05/26/24 07:34 05/26/24 09:51 05/26/24 07:34
I&O
05/25/24 05/26/24 05/27/24
06:59 06:59 06:59
Intake Total 480 / 480 1440 / 1440
Output Total 2375 / 2375 1475 / 1475
Balance -1895 / -1895 -35 / -35
Review of Systems
-
History Source: Patient
All other systems: Reviewed and negative
Physical Exam
-
General: No Apparent Distress
HEENT: Normocephalic
Respiratory: Clear to Auscultation
GI: Soft, Nontender and Nondistended
Neuro: Awake, Alert, Oriented, AO x 3 and Other (b/l LE weakness, chronic)
Psych: Calm
--- NOTE | 2024-05-26 13:55 | CM ---
Chart reviewed
Pt for planned vertebroplasty on 05/28/24
PT/OT eval post-op to determine needs
Plan - TBD post-op based on needs
[2024-05-26 15:32] VITALS: BP 150/85
[2024-05-26] MEDS: ProAmatine PO ×2 (15:45→23:12)
[2024-05-26] MEDS: FLUSH (NSS) IV ×2 (16:11)
[2024-05-26] MEDS: SENOKOT-S 1 TABLET PO (19:50)
[2024-05-26] MEDS: MIRALAX 17 GRAMS PO (19:51)
[2024-05-26] MEDS: DULCOLAX 10 MG RECTAL (19:51)
[2024-05-26 23:10] VITALS: BP 139/77
[2024-05-26] MEDS: XALATAN OPHTHALMIC SOLUTION 1 DROP BOTH EYES (23:12)
[2024-05-27] MEDS: DILAUDID 4 MG PO (00:01)
[2024-05-27 07:00] VITALS: BP 151/78
[2024-05-27] MEDS: CYMBALTA DELAYED RELEASE 30 MG PO ×2 (09:24→20:25)
[2024-05-27] MEDS: LYRICA 75 MG PO ×2 (09:24→20:25)
[2024-05-27] MEDS: FLOMAX 0.4 MG PO (09:24)
[2024-05-27] MEDS: AMOXIL 500 MG PO ×3 (09:24→23:02)
[2024-05-27] MEDS: SINEMET 25-100 1 TABLET PO ×3 (09:24→23:04)
[2024-05-27] MEDS: KEPPRA 500 MG PO ×2 (09:24→20:25)
[2024-05-27] MEDS: MYSOLINE 50 MG PO (09:24)
[2024-05-27] MEDS: ProAmatine PO (09:25)
--- NOTE | 2024-05-27 10:44 | CM ---
Addendum entered by Meliton Hauser 05/27/24 13:35:
CM received a phone call from [facility] dementia program director and she offered a bed.
CM met with the pt and pt's spouse Britney at bedside. CM notified them of [facility] offering a bed. Pt's spouse stated she will tour [facility] and [facility] to decide.
Requested pt's updated clinical faxed to [facility] and [facility].
D/C plan: [facility] or [facility] based on bed availability. Both pt and his spouse to confirm tomorrow.
CM will follow to assit pt with discharge to a preferred SNF: [facility] or [facility].
Original Note:
CM following re: discharge planning.
Reviewed pt's chart, met with pt.
Per chart review, vertebroplasty on 05/28/24.
PT and OT have been recommending SNF level of care. Pt is aware, expressed his agreement. Pt has been notified that [facility], [facility] and [facility] offered a bed and pt preferred [facility].
D/C plan: [facility] based on bed availability on the day of discharge.
CM will follow to assist pt with discharge to [facility]
[2024-05-27 15:00] VITALS: BP 117/78
--- NOTE | 2024-05-27 15:38 | W.PN.HOSP.TC ---
Today's Communication/Plan
-
Pain control is a priority, pain medication regimen has been adjusted
N.p.o. after midnight for planned IR vertebroplasty tomorrow
Assessment / Plan
Assessment / Plan
68yo M with Parkinsons, Hx of falls, seizure d/o, orthostatic hypotension, neuropathy, BPH, cataract, anxiety came after multiple falls at home with severe back pain, found multiple acute vertebral Fx and signs of UTI, found acute urinary retention
with >700ml PVR, haskins placed and urology advised to d/c on [facility] for outpatient follow up. With acute vertebral Fx - neuroSx advised to ambulate with brace and due to poor pain control - vertebroplasty scheduled for 05/28/24 with IRAD. Will need
outpatient follow up with neuroSx for possible laminectomy due to spinal stenosis
A/P:
#Fall without LOC (as reported by patient)
#ACUTE SUPERIOR and INFERIOR FRACTURES of L4 with mild loss of vertebral body height
#Acute nondisplaced fracture of the right posterior 12th rib.
#Acute nondisplaced fractures of the right L1 and L2 transverse processes.
pain mgmt
NeuroSx consult: brace, pain mgmt, since failed - plan for vertebroplasty, the next step would be laminectomy and fusion 2/2 stenosis
IRAD consult - NPO and labs on AM for vertebroplasty tomorrow 05/28/24
-Will require SNF placement, arrangements pending
#b/l LE weakness, can be 2/2 UTI
#Acute urinary retention
#Hematuria - resolved
possible hematuria 2/2 trauma during Haskins placement
cont Haskins - plan to d/c on it as per Urology for outpatient follow up
concern for bladder outlet obstruction - cont tamsulosin, serial bladder scan, outpatient urology for cystoscopy
Ucx - S.agalactiae - sensitive to ampicillin -Abx changed
No hydronephrosis on CT
#hyponatremia
Improved
UOsm 656
improved on fluid restriction.
Chest XR without overt nodule or mass - just 3.4mm R lung calcification
#Macrocytosis
b12 and folate WNL
outpatient hematology advised
#AAA
3.1cm - US abdominal aorta in 1 year with PCP
#chronic healed right posterior rib fractures which have healed with moderate deformity
#Chronic healed left lower posterior rib fractures
no further mgmt
#Parkinson
#Cataract
#Seizure d/o
cont home Sinemet
no reported seizures
DVT ppx SCDs
DNR/DNI
I have spent at least 35min reviewing chart, test results, communication with consultants and direct patient care
Anticipated Discharge: 24 - 48 hours
Subjective/Interval History
-
Date of Service: May 27, 2024
Mr. Paniagua was seen and examined at bedside this morning. He reports ongoing pain and is only mildly relieved by current pain regimen.
Objective Data
-
Vital Signs:
Vital Signs
Temp Pulse Resp BP Pulse Ox
98.0 F 109 18 151/78 94
05/27/24 07:00 05/27/24 07:00 05/27/24 07:00 05/27/24 09:25 05/27/24 07:00
I&O
05/26/24 05/27/24 05/28/24
06:59 06:59 06:59
Intake Total 1440 / 1440 1440 / 1440
Output Total 1475 / 1475 3300 / 3300
Balance -35 / -35 -1860 / -1860
Review of Systems
-
History Source: Patient
All other systems: Reviewed and negative
Musculoskeletal: Reports Joint Pain (Severe back pain)
Physical Exam
-
General: Appears Chronically Ill and Other (Appears uncomfortable secondary to pain)
HEENT: Normocephalic and Atraumatic
Respiratory: Clear to Auscultation and Non Labored Respirations
Cardiac: Regular Rhythm and S1/S2
GI: Soft and Nontender
Genito-urinary: No Costovertebral Tender
Musculoskeletal: No Edema and Clubbing
Skin: Warm and Dry
Neuro: Awake, Alert and Tremors
[2024-05-27] MEDS: ProAmatine 2.5 MG PO ×2 (16:00→23:02)
[2024-05-27] MEDS: PERCOCET 5/325 2 TABLET PO (16:21)
[2024-05-27] MEDS: FLUSH (NSS) IV ×2 (17:14→17:15)
[2024-05-27] MEDS: DILAUDID 2 MG PO (20:25)
[2024-05-27 22:59] VITALS: BP 102/66
[2024-05-27] MEDS: PERCOCET 5/325 1 TABLET PO (23:03)
[2024-05-27] MEDS: XALATAN OPHTHALMIC SOLUTION 1 DROP BOTH EYES (23:04)
[2024-05-28] VITALS (10 sets, daily range): BP systolic 77–136; BP diastolic 48–82
[2024-05-28 06:44] LABS: % Basophils 0.3 % (0-2); % Eosinophils 4.2 % (0-6); % Immature Granulocytes 0.5 % (0-0.5); % Lymphocytes 17.9 % (20.5-51.1); % Monocytes 9.6 % (1.7-9.3); % Neutrophils 67.5 % (42.2-75.2); Absolute Eosinophils 0.3 10^3/uL (0-0.7); Absolute Lymphocytes 1.2 10^3/uL (1.2-3.4); Absolute Monocytes 0.6 10^3/uL (0.1-0.6); Absolute Neutrophils 4.5 10^3/uL (1.4-6.5); Hematocrit 34.9 % (39.0-52.0); Hemoglobin 12.4 g/dL (13.0-18.0); Mean Corp Hgb Conc. 35.5 g/dL (33.0-37.0); Mean Corpuscular Hgb 35.5 pg (27.0-31.0); Mean Platelet Volume 9.6 fL (7.4-10.4); Nucleated Red Blood Cells % 0 % (-); Platelet Count 226 10^3/uL (130-400); Red Blood Cell Count 3.49 10^6/uL (4.70-6.10); Red Cell Dist. Width 11.1 % (11.5-14.5); White Blood Cell Count 6.7 10^3/uL (4.8-10.8)
[2024-05-28 07:01] LABS: PT 14.7 Sec (11.4-14.6)
[2024-05-28 07:02] LABS: APTT 37.6 Sec (23.4-35.0)
[2024-05-28] MEDS: SINEMET 25-100 1 TABLET PO ×3 (07:48→23:54)
[2024-05-28] MEDS: FLOMAX 0.4 MG PO (07:48)
[2024-05-28] MEDS: KEPPRA 500 MG PO ×2 (07:48→21:00)
[2024-05-28] MEDS: AMOXIL 500 MG PO ×3 (07:48→23:54)
[2024-05-28] MEDS: CYMBALTA DELAYED RELEASE 30 MG PO ×2 (07:48→21:00)
[2024-05-28] MEDS: LYRICA 75 MG PO ×2 (07:48→21:00)
[2024-05-28] MEDS: ProAmatine PO ×2 (07:49→16:23)
[2024-05-28] MEDS: MYSOLINE 50 MG PO (07:49)
[2024-05-28 07:52] LABS: Blood Urea Nitrogen 8 mg/dl (9-20); Calcium 8.7 mg/dl (8.4-10.2); Carbon Dioxide 31 mmol/L (22-30); Chloride 94 mmol/L (98-107); Estimated Creatinine Clearance 108 ml/min; Glucose 105 mg/dl (70-99); Sodium 131 mmol/L (135-145); eGFR > 60.00
--- NOTE | 2024-05-28 09:13 | CM ---
Cm reviewed medical records. Plan for procedure today. CM will continue to follow.
[2024-05-28] MEDS: DECADRON 10 MG IV (10:51)
[2024-05-28] MEDS: ANCEF 10 IV (10:51)
--- NOTE | 2024-05-28 14:35 | W.PN.UPDATE ---
Update Note
Progress Note Update
- L4 kyphoplasty successfully performed earlier this morning
- Technically good result. Good cross fill of cement.
- Bedrest for one hour. Patient tolerated well. No immediate complications.
- updated.
--- NOTE | 2024-05-28 15:30 | W.PN.HOSP.TC ---
Today's Communication/Plan
-
Assessment / Plan
Assessment / Plan
68yo M with Parkinsons, Hx of falls, seizure d/o, orthostatic hypotension, neuropathy, BPH, cataract, anxiety came after multiple falls at home with severe back pain, found multiple acute vertebral Fx and signs of UTI, found acute urinary retention
with >700ml PVR, haskins placed and urology advised to d/c on Haskins for outpatient follow up. With acute vertebral Fx - neuroSx advised to ambulate with brace and due to poor pain control - vertebroplasty scheduled for 05/28/24 with [facility]. Will need
outpatient follow up with neuroSx for possible laminectomy due to spinal stenosis
A/P:
#Fall without LOC (as reported by patient)
#ACUTE SUPERIOR and INFERIOR FRACTURES of L4 with mild loss of vertebral body height
#Acute nondisplaced fracture of the right posterior 12th rib.
#Acute nondisplaced fractures of the right L1 and L2 transverse processes.
pain mgmt
NeuroSx consult: brace, pain mgmt, since failed - plan for vertebroplasty, the next step would be laminectomy and fusion 2/2 stenosis
[facility] consult - NPO and labs on AM for vertebroplasty today 05/28/24
-Will require SNF placement, arrangements pending
#b/l LE weakness, can be 2/2 UTI
#Acute urinary retention
#Hematuria - resolved
possible hematuria 2/2 trauma during Haskins placement
cont Haskins - plan to d/c on it as per Urology for outpatient follow up
concern for bladder outlet obstruction - cont tamsulosin, serial bladder scan, outpatient urology for cystoscopy
Ucx - S.agalactiae - sensitive to ampicillin -Abx changed
No hydronephrosis on CT
#hyponatremia
Improved, stable with serum sodium 131 again today
UOsm 656
improved on fluid restriction.
Chest XR without overt nodule or mass - just 3.4mm R lung calcification
#Macrocytosis
b12 and folate WNL
outpatient hematology advised
#AAA
3.1cm - US abdominal aorta in 1 year with PCP
#chronic healed right posterior rib fractures which have healed with moderate deformity
#Chronic healed left lower posterior rib fractures
no further mgmt
#Parkinson
#Cataract
#Seizure d/o
cont home Sinemet
no reported seizures
DVT ppx SCDs
DNR/DNI
I have spent at least 35min reviewing chart, test results, communication with consultants and direct patient care
Anticipated Discharge: 24 - 48 hours
Subjective/Interval History
-
Date of Service: May 28, 2024
Mr. Paniagua was seen and examined at bedside this morning. No acute distress. Has been n.p.o. after midnight for planned kyphoplasty today.
Objective Data
-
Labs:
Laboratory Results
05/28/24
06:01
WBC 6.7
Hgb 12.4 L
Hct 34.9 L
Plt Count 226
PT 14.7 H
INR 1.10
APTT 37.6 H
Sodium 131 L
Potassium 4.0
Chloride 94 L
Carbon Dioxide 31 H
BUN 8 L
Creatinine 0.7
Glucose 105 H
Calcium 8.7
Vital Signs:
Vital Signs
Temp Pulse Resp BP Pulse Ox
97.4 F 82 10 132/74 93
05/28/24 14:45 05/28/24 14:45 05/28/24 14:45 05/28/24 14:45 05/28/24 14:45
I&O
05/27/24 05/28/24 05/29/24
06:59 06:59 06:59
Intake Total 1440 / 1440 480 / 480
Output Total 3300 / 3300 850 / 850 650 / 650
Balance -1860 / -1860 -370 / -370 -650 / -650
Review of Systems
-
History Source: Patient
All other systems: Reviewed and negative
Musculoskeletal: Reports Joint Pain (Back pain)
Physical Exam
-
General: No Apparent Distress and Conversant
HEENT: Normocephalic and Atraumatic
Respiratory: Clear to Auscultation and Non Labored Respirations
Cardiac: Regular Rhythm and S1/S2
GI: Soft and Nontender
Musculoskeletal: No Cyanosis and No Edema
Skin: Warm and Dry
Neuro: Awake, Alert and Tremors
Psych: Calm and Intact Judgement/Insight
[2024-05-28] MEDS: FLUSH (NSS) IV ×2 (17:51)
[2024-05-28] MEDS: PERCOCET 5/325 1 TABLET PO (21:00)
[2024-05-28] MEDS: ProAmatine 2.5 MG PO (23:54)
[2024-05-28] MEDS: XALATAN OPHTHALMIC SOLUTION 1 DROP BOTH EYES (23:55)
[2024-05-29] VITALS (7 sets, daily range): BP systolic 106–145; BP diastolic 58–78; PULSE 80; O2SAT 97
[2024-05-29] MEDS: AMOXIL 500 MG PO ×2 (07:58→15:22)
[2024-05-29] MEDS: ProAmatine 2.5 MG PO ×3 (07:59→21:01)
[2024-05-29] MEDS: FLOMAX 0.4 MG PO (07:59)
[2024-05-29] MEDS: CYMBALTA DELAYED RELEASE 30 MG PO ×2 (07:59→21:01)
[2024-05-29] MEDS: KEPPRA 500 MG PO ×2 (07:59→21:01)
[2024-05-29] MEDS: SINEMET 25-100 1 TABLET PO ×3 (08:00→21:01)
[2024-05-29] MEDS: LYRICA 75 MG PO ×2 (08:00→21:01)
[2024-05-29] MEDS: MYSOLINE 50 MG PO (08:00)
--- NOTE | 2024-05-29 12:19 | W.PN.HOSP.TC ---
Today's Communication/Plan
-
Assessment / Plan
Assessment / Plan
Gen-AAOx3, NAD
HEENT-NC, AT, anicteric, clear oral mm
Neck-supple
CV-reg, no M, +S1/S2
Lungs-clear B/L
Abd-soft, NT, ND, Haskins catheter in place draining clear yellow urine
Musculoskeletal-no edema, no deformity
Skin-warm and dry
Neuro-grossly non-focal, mild to moderate tremor
Psych-calm, cooperative
68yo M with Parkinsons, Hx of falls, seizure d/o, orthostatic hypotension, neuropathy, BPH, cataract, anxiety came after multiple falls at home with severe back pain, found multiple acute vertebral Fx and signs of UTI, found acute urinary retention
with >700ml PVR, haskins placed and urology advised to d/c on Haskins for outpatient follow up. With acute vertebral Fx - neuroSx advised to ambulate with brace and due to poor pain control - vertebroplasty completed 05/28/24 with [facility]. Will need
outpatient follow up with neuroSx for possible laminectomy due to spinal stenosis
A/P:
#Fall without LOC (as reported by patient)
#ACUTE SUPERIOR and INFERIOR FRACTURES of L4 with mild loss of vertebral body height
#Acute nondisplaced fracture of the right posterior 12th rib.
#Acute nondisplaced fractures of the right L1 and L2 transverse processes.
pain mgmt
-Status post kyphoplasty 05/28 with significant reduction in pain, still has significant bilateral lower extremity weakness
-Encourage ambulation with assistance, continue working with PT/OT
-Neurosurgery following, recommend outpatient follow-up for further management including possible laminectomy and fusion
-Will require SNF placement, arrangements pending
#b/l LE weakness, can be 2/2 UTI
#Acute urinary retention
#Hematuria - resolved
-Some concern for bladder outlet obstruction, Haskins catheter in place, continue tamsulosin, maintain Haskins at discharge with outpatient urology follow-up
-Hematuria possibly 2/2 trauma during Haskins placement, now draining clear yellow urine
cont Haskins - plan to d/c with Haskins as per Urology for outpatient follow up
Ucx - S.agalactiae - sensitive to ampicillin -Abx changed to complete course of amoxicillin today 05/29
No [address] on CT
#hyponatremia
Improved, stable with serum sodium 131 again today
UOsm 656
improved on fluid restriction.
Chest XR without overt nodule or mass - just 3.4mm R lung calcification
#Macrocytosis
b12 and folate WNL
outpatient hematology advised
#AAA
3.1cm - US abdominal aorta in 1 year with PCP
#chronic healed right posterior rib fractures which have healed with moderate deformity
#Chronic healed left lower posterior rib fractures
no further mgmt
#Parkinson
#Cataract
#Seizure d/o
cont home Sinemet
no reported seizures
DVT ppx SCDs
DNR/DNI
I have spent at least 35min reviewing chart, test results, communication with consultants and direct patient care
Anticipated Discharge: 24 - 48 hours
Subjective/Interval History
-
Date of Service: May 29, 2024
Mr. Marie was seen and examined at bedside this morning. He is status post kyphoplasty yesterday 05/28 with significant improvement in his pain. He is still having difficulty ambulating due to lower extremity weakness which he is frustrated
about.
Objective Data
-
Vital Signs:
Vital Signs
Temp Pulse Resp BP Pulse Ox
97.5 F 91 16 115/68 93
05/29/24 11:33 05/29/24 11:33 05/29/24 11:33 05/29/24 11:33 05/29/24 11:33
I&O
05/28/24 05/29/24 05/30/24
06:59 06:59 06:59
Intake Total 480 / 480 960 / 960 360 / 360
Output Total 850 / 850 1974 / 1974
Balance -370 / -370 -1015 / -1015 360 / 360
Review of Systems
-
History Source: Patient
All other systems: Reviewed and negative
Musculoskeletal: Reports Other (Bilateral lower extremity weakness)
--- NOTE | 2024-05-29 12:50 | W.PN.GENERIC ---
Assessment / Plan
-
68 yo male with h/o Parkinson's who was admitted with back pain and L4 compression fracture after a fall at home. He underwent vertebral augmentation yesterday. He reports improvement in back pain but still has LE weakness.
He is stable from IR standpoint to be discharged once managing team agrees
I spent greater than 35 minutes reviewing the chart, evaluating and examining the patient, reviewing laboratory studies all relevant imaging as well as documenting, counseling the patient and revieing discharge instructions and expected outcomes.
Physician Progress Note
Subjective
This is a 68 year old male with history of Parkinson's disease, peripheral neuropathy, BPH, seizure disorder, dyslipidemia and orthostatic hypotension, who came into the hospital after a fall. He had an MRI which demonstrates an acute L4
compression fracture. He underwent vertebral augmentation yesterday in IR. He report the pain in his back has greatly improved. He was able to stand without back pain. He still complains of lower extremity weakness.
Past Medical History
Parkinson's disease, peripheral neuropathy, BPH, seizure disorder, irritable bowel syndrome, dyslipidemia, hereditary cerebellar ataxia, orthostatic hypotension
Past Surgical History:
Left elbow and left ankle surgery
Social History
Tobacco: Non-smoker
Living: and lives at home with
Allergies
Allergy/AdvReac Type Severity Reaction Status Date / Time
bacitracin Allergy Pharmacy Verified 05/17/24 14:34
to Review
gramicidin D Allergy Pharmacy Verified 05/17/24 14:34
to Review
neomycin Allergy Pharmacy Verified 05/17/24 14:34
to Review
polymyxin B Allergy Pharmacy Verified 05/17/24 14:34
to Review
Home Medications
Carbidopa-levodopa PO TID, CoQ enzyme 200mg PO Qd, duloxetine 30 MG PO bid, Latanoprost 1 gtt OU bid, levetiracetam 500 mg PO BID, midodrine 5mg PO TID, pregabalin 75 mg PO BID, primidone 50 mg QHS, tamsulosin 0.4 mg po qd
Objective
Vital Signs
Temp Pulse Resp BP Pulse Ox
97.5 F 91 16 115/68 93
05/29/24 11:33 05/29/24 11:33 05/29/24 11:33 05/29/24 11:33 05/29/24 11:33
Lab Results
05/28/24 06:01
05/28/24 06:01
This is a WNWD 68 yo male lying in bed. Color is good. Skin is warm and dry. Heart is regular. Lungs are CTA. Abdomen is soft, round and nontender with bowel sounds. There is no tenderness over the lower lumbar spine to palpation. His dressing
is CDI. It was removed and there is no hematoma. Palpable pulses. Resting tremor noted
[2024-05-29] MEDS: PERCOCET 5/325 1 TABLET PO ×2 (15:25→21:09)
[2024-05-29] MEDS: XALATAN OPHTHALMIC SOLUTION 1 DROP BOTH EYES (21:03)
[2024-05-30 07:27] VITALS: BP 137/73
[2024-05-30] MEDS: SINEMET 25-100 1 TABLET PO ×3 (07:36→21:03)
[2024-05-30] MEDS: KEPPRA 500 MG PO ×2 (07:36→21:03)
[2024-05-30] MEDS: FLOMAX 0.4 MG PO (07:37)
[2024-05-30] MEDS: ProAmatine 2.5 MG PO ×3 (07:37→21:04)
[2024-05-30] MEDS: LYRICA 75 MG PO ×2 (07:37→21:03)
[2024-05-30] MEDS: CYMBALTA DELAYED RELEASE 30 MG PO ×2 (07:37→21:03)
[2024-05-30] MEDS: MYSOLINE 50 MG PO (07:37)
[2024-05-30] MEDS: PERCOCET 5/325 2 TABLET PO (07:41)
--- NOTE | 2024-05-30 12:59 | CM ---
Addendum entered by Hanna Jama, RN 05/30/24 15:13:
Spoke with Don at [facility] can not accept pt.today. is aware.
She toured [facility] and declined facility.
Requested additional SNF . Referral for [facility] entered in care port as requested . LM with [facility] awaiting call back .
PLAN To SNF after located
Original Note:
Md indicated pt ready for dc.
Spoke with reviewed SNF available.
requested tour of [facility] today .
Bre colon said could have a tour today .
Requested call me back .
Spoke with Don at [facility] can not accept today call on Saturday.
PLAN To SNf
--- NOTE | 2024-05-30 14:41 | W.DCSUMMARY ---
Addendum entered and electronically signed by Samantha Kohli MD 06/01/24 15:55:
Date of discharge: 06/01/2024
Original Note:
Discharge Summary
Discharge Data
Date of Admission: 05/17/24
Date of Discharge: 05/30/24
-
Pending Results: No
Hospital Course
Gen-AAOx3, NAD
HEENT-NC, AT, anicteric, clear oral mm
Neck-supple
CV-reg, no M, +S1/S2
Lungs-clear B/L
Abd-soft, NT, ND, Haskins catheter in place draining clear yellow urine
Musculoskeletal-no edema, no deformity
Skin-warm and dry
Neuro-grossly non-focal, mild to moderate tremor
Psych-calm, cooperative
Mr. Paniagua is a 68yo M with a medical history of Parkinsons, Hx of falls, seizure d/o, orthostatic hypotension, neuropathy, BPH, cataract, and anxiety who presented with severe back pain after multiple falls at home. Lumbar MRI showed moderate
acute compression fracture of the L4 vertebral body and severe spinal canal stenosis at L3-L4 and L4-L5 levels. CT C-spine showed severe degenerative disease including left-sided facet joint thoracis at C3-C4.
He was evaluated by neurosurgery for his vertebral compression fracture and stenosis, and they recommended ambulation with brace. However he was unable to tolerate brace due to pain. Ultimately he underwent vertebroplasty on 05/18/2024 with
interventional radiology. His pain was significantly better controlled following vertebroplasty. Neurosurgery recommended physical therapy as tolerated and outpatient follow-up in a few weeks for further evaluation and discussion of further
interventions as needed including possible laminectomy. His pain is currently well-controlled with with the use of Percocet which he should continue for now as needed. He should continue on a bowel regimen while taking opiate pain medications to
avoid constipation.
He was also found to have acute urinary retention for which Haskins catheter was placed. He was evaluated by urology who recommended maintaining Haskins at time of discharge and following up in the outpatient urology office for further management. He
was continued on tamsulosin. He completed a course of amoxicillin for urine culture growing strep agalactiae.
His serum sodium levels were low but stable around 131. He had no associated central neurologic symptoms. His hyponatremia is suspected to be chronic and can be further monitored in the outpatient setting.
He will need ongoing PT/OT and an inpatient rehab facility following hospital discharge.
Discharge Plan
-
Patient Disposition: Snf/SNF
Discharge Diagnosis/Procedures: Vertebral compression fracture, acute urinary retention
Diet: Regular
Activity: As tolerated
Additional Activity: LSO Brace when upright
Other Services: PT and OT
Activity Restrictions/Additional Instructions:
Mr. Paniagua is a 68yo M with a medical history of Parkinsons, Hx of falls, seizure d/o, orthostatic hypotension, neuropathy, BPH, cataract, and anxiety who presented with severe back pain after multiple falls at home. Lumbar MRI showed moderate
acute compression fracture of the L4 vertebral body and severe spinal canal stenosis at L3-L4 and L4-L5 levels. CT C-spine showed severe degenerative disease including left-sided facet joint thoracis at C3-C4.
He was evaluated by neurosurgery for his vertebral compression fracture and stenosis, and they recommended ambulation with brace. However he was unable to tolerate brace due to pain. Ultimately he underwent vertebroplasty on 05/18/2024 with
interventional radiology. His pain was significantly better controlled following vertebroplasty. Neurosurgery recommended physical therapy as tolerated and outpatient follow-up in a few weeks for further evaluation and discussion of further
interventions as needed including possible laminectomy. His pain is currently well-controlled with with the use of Percocet which he should continue for now as needed. He should continue on a bowel regimen while taking opiate pain medications to
avoid constipation.
He was also found to have acute urinary retention for which Haskins catheter was placed. He was evaluated by urology who recommended maintaining Haskins at time of discharge and following up in the outpatient urology office for further management. He
was continued on tamsulosin. He completed a course of amoxicillin for urine culture growing strep agalactiae.
His serum sodium levels were low but stable around 131. He had no associated central neurologic symptoms. His hyponatremia is suspected to be chronic and can be further monitored in the outpatient setting.
He will need ongoing PT/OT and an inpatient rehab facility following hospital discharge.
Referrals:
Jb Joel DO [Family Provider] - in one week (establish follow up for abdominal aortic aneurism)
Vijay Alcantara MD [Active] - in three to four weeks (Replace ROBERT haskins, cystoscopy)
Yanni Ferguson MD [Active] - in four to six weeks
Prescriptions:
New
polyethylene glycol 3350 17 gram Powder In Packet
17 g PO DAILYPRN PRN (Reason: constipation) Qty: 30 0RF
hydromorphone 4 mg Tablet
4 mg PO Q4HPRN PRN (Reason: moderate-severe pain) Qty: 12 0RF
acetaminophen 325 mg Tablet
650 mg PO Q4HPRN PRN (Reason: mild pain/GUERRERO/temp> 100.4F) Qty: 90 0RF
oxycodone-acetaminophen 5-325 mg Tablet
2 tab PO Q4HPRN PRN (Reason: severe pain) 3 Days Qty: 20 0RF
Continued
multivitamin with folic acid [Tab-A-Kody] 1 TABLET tablet
1 tab PO DAILY
latanoprost 0.005 % Drops
1 drp BOTH EYES HS
primidone 50 mg Tablet
50 mg PO QPM
levetiracetam 500 mg Tablet
500 mg PO BID
midodrine 5 mg Tablet
5 mg PO TID
tamsulosin 0.4 mg Capsule
0.4 mg PO DAILY
carbidopa-levodopa 25-100 mg Tablet
1 tab PO TID
Patient Comments:
05/17/24 patient has been taking only one tab daily due to stomach issues
duloxetine 30 mg Capsule,Delayed Release(Dr/Ec)
30 mg PO BID
pregabalin 75 mg Capsule
75 mg PO BID
coenzyme Q10 [Co Q-10] 200 mg Capsule
200 mg PO DAILY
Discontinued
ascorbic acid (vitamin C) [Vitamin C] 500 mg Tablet
500 mg PO DAILY
Discharge Orders:
Discharge Patient (As Directed); Ordered 05/30/24
Ordered By: Ti Alarcon
Discharge Date and Time
Print Language: SUDANESE
[2024-05-30 15:46] VITALS: BP 120/58
[2024-05-30] MEDS: XALATAN OPHTHALMIC SOLUTION 1 DROP BOTH EYES (21:06)
[2024-05-30] MEDS: PERCOCET 5/325 1 TABLET PO (22:56)
[2024-05-30 23:44] VITALS: BP 130/68
[2024-05-31 07:53] VITALS: BP 121/77
--- NOTE | 2024-05-31 09:41 | CM ---
Addendum entered by Alnia Franklin 05/31/24 16:24:
Follow up call with - she visited [facility] and [place] - she would be willing to have pt go here ([facility] - does not want 3 person room though).
Plan is for CM to outreach [place], [place] and [facility] in the AM to secure a bed. If not, [place] and [place] as back ups.
Addendum entered by Alina Franklin 05/31/24 11:49:
Response from [facility] - cannot accept today.
Original Note:
CM following re: d/c planning.
Previously[facility] pt clinically, but do not accept admissions on the weekends.
[facility] no beds at time of referral. Msg left inquiring if any beds today.
Pt's had toured [facility] and [facility] and found these SNFs to be unacceptable.
Additional referral sent to [facility]. [facility] called [facility], admissions not in on the weekends.
CM spoke with RN, who states they do not take new adm on weekends and will review tomorrow.
CM called , informed her of the above and requested additional options.
She would like a referral to [facility], [facility], and [facility].
In the meantime, she will go check them out. CM will await bed offers.
Ongoing dispo efforts.
[2024-05-31] MEDS: SINEMET 25-100 1 TABLET PO ×3 (10:25→22:18)
[2024-05-31] MEDS: LYRICA 75 MG PO ×2 (10:25→20:02)
[2024-05-31] MEDS: FLOMAX 0.4 MG PO (10:25)
[2024-05-31] MEDS: KEPPRA 500 MG PO ×2 (10:25→20:03)
[2024-05-31] MEDS: ProAmatine 2.5 MG PO ×3 (10:25→22:18)
[2024-05-31] MEDS: CYMBALTA DELAYED RELEASE 30 MG PO ×2 (10:25→20:03)
[2024-05-31] MEDS: MYSOLINE 50 MG PO (10:31)
[2024-05-31] MEDS: PREVNAR 20 0.5 ML IM (10:40)
[2024-05-31] MEDS: FLUAD (65 yr+) 2024-2025 FORMULA 0.5 ML IM (10:42)
--- NOTE | 2024-05-31 13:28 | W.PN.HOSP.TC ---
Today's Communication/Plan
-
Discharge to SNF when bed available
Will need outpatient neurosurgery follow-up
Assessment / Plan
Assessment / Plan
Gen-AAOx3, NAD
HEENT-NC, AT, anicteric, clear oral mm
Neck-supple
CV-reg, no M, +S1/S2
Lungs-clear B/L
Abd-soft, NT, ND, Haskins catheter in place draining clear yellow urine
Musculoskeletal-no edema, no deformity
Skin-warm and dry
Neuro-grossly non-focal, mild to moderate tremor
Psych-calm, cooperative
68yo M with Parkinsons, Hx of falls, seizure d/o, orthostatic hypotension, neuropathy, BPH, cataract, anxiety came after multiple falls at home with severe back pain, found multiple acute vertebral Fx and signs of UTI, found acute urinary retention
with >700ml PVR, haskins placed and urology advised to d/c on Haskins for outpatient follow up. With acute vertebral Fx - neuroSx advised to ambulate with brace and due to poor pain control - vertebroplasty completed 05/28/24 with [facility]. Will need
outpatient follow up with neuroSx for possible laminectomy due to spinal stenosis
A/P:
#Fall without LOC (as reported by patient)
#ACUTE SUPERIOR and INFERIOR FRACTURES of L4 with mild loss of vertebral body height
#Acute nondisplaced fracture of the right posterior 12th rib.
#Acute nondisplaced fractures of the right L1 and L2 transverse processes.
pain mgmt
-Status post kyphoplasty 05/28 with significant reduction in pain, still has significant bilateral lower extremity weakness
-Encourage ambulation with assistance, continue working with PT/OT
-Neurosurgery following, recommend outpatient follow-up for further management including possible laminectomy and fusion
-Will require SNF placement, arrangements pending
#b/l LE weakness, can be 2/2 UTI
#Acute urinary retention
#Hematuria - resolved
-Some concern for bladder outlet obstruction, Haskins catheter in place, continue tamsulosin, maintain Haskins at discharge with outpatient urology follow-up
-Hematuria possibly 2/2 trauma during Haskins placement, now draining clear yellow urine
cont Haskins - plan to d/c with Haskins as per Urology for outpatient follow up
Ucx - S.agalactiae - sensitive to ampicillin -Abx changed to complete course of amoxicillin today 05/29
No [address]rosis on CT
#hyponatremia
Improved, stable with serum sodium 131 again today
UOsm 656
improved on fluid restriction.
Chest XR without overt nodule or mass - just 3.4mm R lung calcification
#Macrocytosis
b12 and folate WNL
outpatient hematology advised
#AAA
3.1cm - US abdominal aorta in 1 year with PCP
#chronic healed right posterior rib fractures which have healed with moderate deformity
#Chronic healed left lower posterior rib fractures
no further mgmt
#Parkinson
#Cataract
#Seizure d/o
cont home Sinemet
no reported seizures
DVT ppx SCDs
DNR/DNI
I have spent at least 35min reviewing chart, test results, communication with consultants and direct patient care
Anticipated Discharge: 24 - 48 hours
Subjective/Interval History
-
Date of Service: May 31, 2024
Mr. Paniagua was seen and examined at bedside this morning. He reports continued pain relief following kyphoplasty but feels very deconditioned. He is especially having difficulty with strength in his right leg specifically when trying to fully
extend.
Objective Data
-
Vital Signs:
Vital Signs
Temp Pulse Resp BP Pulse Ox
98.3 F 82 16 121/77 94
05/31/24 07:53 05/31/24 07:53 05/31/24 07:53 05/31/24 07:53 05/31/24 07:53
I&O
05/30/24 05/31/24 06/01/24
06:59 06:59 06:59
Intake Total 1160 / 1160 1080 / 1080
Output Total 975 / 975 725 / 725
Balance 185 / 185 355 / 355
Review of Systems
-
History Source: Patient
All other systems: Reviewed and negative
Constitutional: Reports Fatigue
Musculoskeletal: Reports Joint Pain (Lumbar pain)
Neuro: Reports Weakness (Bilateral legs)
Physical Exam
-
General: No Apparent Distress
[2024-05-31 15:07] VITALS: BP 133/81
--- NOTE | 2024-05-31 15:28 | PTCARENOTE ---
Patient resting comfortably, watching the [email or web address] game. Patient has c/o pain when turned and does not want to get OOB.
[2024-05-31] MEDS: PERCOCET 5/325 1 TABLET PO (22:22)
[2024-05-31] MEDS: XALATAN OPHTHALMIC SOLUTION 1 DROP BOTH EYES (22:24)
[2024-05-31 22:54] VITALS: BP 134/73
[2024-06-01] MEDS: ProAmatine 2.5 MG PO (09:35)
[2024-06-01] MEDS: SINEMET 25-100 1 TABLET PO (09:35)
[2024-06-01] MEDS: LYRICA 75 MG PO (09:35)
[2024-06-01] MEDS: CYMBALTA DELAYED RELEASE 30 MG PO (09:35)
[2024-06-01] MEDS: KEPPRA 500 MG PO (09:35)
[2024-06-01] MEDS: FLOMAX 0.4 MG PO (09:35)
[2024-06-01] MEDS: MYSOLINE 50 MG PO (09:35)
[2024-06-01] MEDS: PERCOCET 5/325 1 TABLET PO ×2 (09:49→13:52)
--- NOTE | 2024-06-01 10:25 | W.PN.HOSP.TC ---
Today's Communication/Plan
-
dc
Assessment / Plan
Assessment / Plan
Gen-AAOx3, NAD
HEENT-NC, AT, anicteric, clear oral mm
Neck-supple
CV-reg, no M, +S1/S2
Lungs-clear B/L
Abd-soft, NT, ND, Haskins catheter in place draining clear yellow urine
Musculoskeletal-no edema, no deformity
Skin-warm and dry
Neuro-grossly non-focal, mild to moderate tremor
Psych-calm, cooperative
68yo M with Parkinsons, Hx of falls, seizure d/o, orthostatic hypotension, neuropathy, BPH, cataract, anxiety came after multiple falls at home with severe back pain, found multiple acute vertebral Fx and signs of UTI, found acute urinary retention
with >700ml PVR, haskins placed and urology advised to d/c on Haskins for outpatient follow up. With acute vertebral Fx - neuroSx advised to ambulate with brace and due to poor pain control - vertebroplasty completed 05/28/24 with [facility]. Will need
outpatient follow up with neuroSx for possible laminectomy due to spinal stenosis
A/P:
#Fall without LOC (as reported by patient)
#ACUTE SUPERIOR and INFERIOR FRACTURES of L4 with mild loss of vertebral body height
#Acute nondisplaced fracture of the right posterior 12th rib.
#Acute nondisplaced fractures of the right L1 and L2 transverse processes.
pain mgmt
Patient feels Percocet helping pain, requesting to continue upon discharge. A prescription is given
-Status post kyphoplasty 05/28 with significant reduction in pain, still has significant bilateral lower extremity weakness
-Encourage ambulation with assistance, continue working with PT/OT
-Neurosurgery following, recommend outpatient follow-up for further management including possible laminectomy and fusion
-Will require SNF placement, arrangements pending
#b/l LE weakness, can be 2/2 UTI
#Acute urinary retention
#Hematuria - resolved
-Some concern for bladder outlet obstruction, Haskins catheter in place, continue tamsulosin, maintain Haskins at discharge with outpatient urology follow-up
-Hematuria possibly 2/2 trauma during Haskins placement, now draining clear yellow urine
cont Haskins - plan to d/c with Haskins as per Urology for outpatient follow up
Ucx - S.agalactiae - sensitive to ampicillin -Abx changed to complete course of amoxicillin today 05/29
No hydronephrosis on CT
#hyponatremia
Improved, stable with serum sodium 131 again today
UOsm 656
improved on fluid restriction.
Chest XR without overt nodule or mass - just 3.4mm R lung calcification
#Macrocytosis
b12 and folate WNL
outpatient hematology advised
#AAA
3.1cm - US abdominal aorta in 1 year with PCP
#chronic healed right posterior rib fractures which have healed with moderate deformity
#Chronic healed left lower posterior rib fractures
no further mgmt
#Parkinson
#Cataract
#Seizure d/o
cont home Sinemet
no reported seizures
DVT ppx SCDs
DNR/DNI
Total discharge time spent to see the patient, examine the patient, review data and lab results, discuss treatment and discharge plan with patient, dependency case manager and nursing staff around 65 minutes
Anticipated Discharge: Today
Subjective/Interval History
-
Date of Service: June 01, 2024
Feel ready to go to SNF
Back stiffness more than pain but Percocet is helping and wants it to continue upon discharge
Objective Data
-
Vital Signs:
Vital Signs
Temp Pulse Resp BP Pulse Ox
98.1 F 86 18 134/73 99
06/01/24 07:10 05/31/24 22:54 05/31/24 22:54 06/01/24 09:35 05/31/24 22:54
I&O
01/19/25 01/20/25 01/21/25
06:59 06:59 06:59
Intake Total 1080 / 1080 720 / 720 240 / 240
Output Total 725 / 725 2450 / 2450
Balance 355 / 355 -1730 / -1730 240 / 240
[2024-06-01 10:27] VITALS: BP 130/76; BP 133/78; PULSE 105; O2SAT 92
--- NOTE | 2024-06-01 11:42 | CM ---
Addendum entered by Sandy Prince 06/01/24 11:59:
2pm ambulance transport, [facility] updated, spouse updated.
Spouse will be here before transport.
Original Note:
Bed available at [facility] for today.
Patient and spouse in agreement.
IMM completed.
Plan: [facility] today via ambulance transport.
[facility]
report [phone]
== END 2024-06-01 14:23 | DRG 515 ==
LOC: 1 ACUTE 18:33
PROVIDERS: Emergency Medicine; Internal Medicine; Radiology Diagnostic Radiology; ADMITTING PHYSICIAN Hospitalist; ATTENDING PHYSICIAN Internal Medicine; CONSULT PHYSICIAN Physical Medicine & Rehabilitation; CONSULT PHYSICIAN Specialist; EMERGENCY PHYSICIAN Emergency Medicine; FAMILY PHYSICIAN Family Medicine; OTHER PHYSICIAN Neurological Surgery
PROC: 0QU03JZ Supplement Lumbar Vertebra with Synthetic Substitute, Percutaneous Approach (ICD-10-PCS; 2024-05-28)
PROC: 0QS03ZZ Reposition Lumbar Vertebra, Percutaneous Approach (ICD-10-PCS; 2024-05-28)
DX: M48.56XA Collapsed vertebra, not elsewhere classified, lumbar region, initial encounter for fracture (principal); A41.9 Sepsis, unspecified organism; E87.1 Hypo-osmolality and hyponatremia; N39.0 Urinary tract infection, site not specified; D68.32 Hemorrhagic disorder due to extrinsic circulating anticoagulants; G11.9 Hereditary ataxia, unspecified; Z11.52 Encounter for screening for COVID-19; N30.21 Other chronic cystitis with hematuria; G20.A1 Parkinson's disease without dyskinesia, without mention of fluctuations; Z66 Do not resuscitate; N40.0 Benign prostatic hyperplasia without lower urinary tract symptoms; Z74.01 Bed confinement status; Z91.81 History of falling
CPT/HCPCS: 22514; 70450; 71045; 72125; 72157; 72158; 74177; 80048; 80053; 81003; 81015; 82607; 82746; 83605; 83935; 84300; 85025; 85610; 85730; 87040; 87077; 87086; 87147; 87186; 87502; 87811; 90662; 90677; 93005; 96361; 96374; 97110; 97163; 97167; 97530; 97535; 99285; A9575; G0008; G0009; Q9967

== ENCOUNTER → 2024-07-08 09:18 | Outpatient (REF) | payer OTHER, MEDICARE, SELFPAY ==
[2024-07-08 10:17] LABS: % Basophils 0.4 % (0-2); % Eosinophils 10.3 % (0-6); % Immature Granulocytes 0.2 % (0-0.5); % Lymphocytes 34.7 % (20.5-51.1); % Monocytes 13.2 % (1.7-9.3); % Neutrophils 41.2 % (42.2-75.2); Absolute Eosinophils 0.6 10^3/uL (0-0.7); Absolute Lymphocytes 1.9 10^3/uL (1.2-3.4); Absolute Monocytes 0.7 10^3/uL (0.1-0.6); Absolute Neutrophils 2.3 10^3/uL (1.4-6.5); Hematocrit 33.9 % (39.0-52.0); Hemoglobin 11.6 g/dL (13.0-18.0); Mean Corp Hgb Conc. 34.2 g/dL (33.0-37.0); Mean Corpuscular Volume 96.3 fL (80.0-94.0); Mean Platelet Volume 10.2 fL (7.4-10.4); Nucleated Red Blood Cells % 0 % (-); Platelet Count 157 10^3/uL (130-400); Red Blood Cell Count 3.52 10^6/uL (4.70-6.10); Red Cell Dist. Width 11.9 % (11.5-14.5); White Blood Cell Count 5.5 10^3/uL (4.8-10.8)
[2024-07-08 10:36] LABS: Blood Urea Nitrogen 7 mg/dl (9-20); Calcium 9.3 mg/dl (8.4-10.2); Carbon Dioxide 30 mmol/L (22-30); Chloride 100 mmol/L (98-107); Glucose 91 mg/dl (70-99); Potassium 4.2 mmol/L (3.5-5.1); Sodium 134 mmol/L (135-145); eGFR > 60.00
== END ==
LOC: OLABP 09:18
PROVIDERS: ATTENDING PHYSICIAN Family Medicine
DX: G20.A1 Parkinson's disease without dyskinesia, without mention of fluctuations (principal); G62.9 Polyneuropathy, unspecified; S32.040D Wedge compression fracture of fourth lumbar vertebra, subsequent encounter for fracture with routine healing; A41.9 Sepsis, unspecified organism; D68.32 Hemorrhagic disorder due to extrinsic circulating anticoagulants; R31.9 Hematuria, unspecified; N31.9 Neuromuscular dysfunction of bladder, unspecified; N39.0 Urinary tract infection, site not specified; I95.1 Orthostatic hypotension; G11.9 Hereditary ataxia, unspecified
CPT/HCPCS: 36415; 80048; 85025

== ENCOUNTER → 2024-09-05 12:46 | Outpatient (REF) | payer MEDICARE, OTHER, SELFPAY | LOC: MRI 3T 12:46 | PROVIDERS: ATTENDING PHYSICIAN Neurological Surgery; FAMILY PHYSICIAN Family Medicine | DX: S32.000A Wedge compression fracture of unspecified lumbar vertebra, initial encounter for closed fracture (principal); M48.061 Spinal stenosis, lumbar region without neurogenic claudication | CPT/HCPCS: 72148 ==